=== PATIENT | male | born 1955 | race Caucasian/White ===

== ENCOUNTER 2021-08-12 23:08 | Inpatient (IN) ==
[2021-08-12] MEDS ORDERED: DIPHTHERIA/TETANUS/PERTUSSIS 0.5 ML SYR/VIAL IM ONE (23:17)
[2021-08-12] MEDS ORDERED: SODIUM CHLORIDE 0.9% 1000ML 1,000 ML IV SCH (23:30)
[2021-08-12] MEDS ORDERED: PIPERACILL/TAZOBAC CONSULT ACTIVE PRN (23:36)
[2021-08-12] MEDS ORDERED: PIPERACILLIN/TAZOBACTAM 4.5 GM/120 ML BAG IV ONE (23:36)
[2021-08-12 23:40] LABS: Basophils # (auto) 0.01 K/uL (0-0.2); Basophils % (auto) 0.1 %; Hemoglobin 8.4 g/dL (14.0-18.0); Immature Granulocytes # (auto) 0.04 K/uL (0.00-0.02); Immature Granulocytes % (auto) 0.4 %; Lymphocytes # (auto) 0.86 K/uL (1.2-3.4); Lymphocytes % (auto) 8.5 %; Mean Corpuscular Hemoglobin 30.7 pg (25-34); Mean Corpuscular Hgb Conc 31.1 g/dL (32-36); Mean Corpuscular Volume 98.5 fL (80-100); Mean Platelet Volume 8.8 fL (7.4-10.4); Monocytes # (auto) 0.85 K/uL (0.11-0.59); Monocytes % (auto) 8.4 %; Neutrophils # (auto) 8.21 K/uL (1.4-6.5); Neutrophils % (auto) 81.6 %; Platelet Count 314 K/uL (130-400); RDW Coefficient of Variation 13.9 % (11.5-14.5); RDW Standard Deviation 50.1 fL (36.4-46.3); Red Blood Count 2.74 M/uL (4.7-6.1); White Blood Count 10.07 K/uL (4.8-10.8)
--- NOTE | 2021-08-12 23:56 | Emergency Department Note ---
ED Visit Note This Patient was discussed with the physician it assistant, Aysha Henry PA-C. The pertinent historical and physical exam findings were confirmed. I agree with the studies ordered and with the interpretations of these studies. I agree with the disposition and care plan. .
[2021-08-13 00:05] LABS: Troponin I < 0.03 ng/ml (0-0.04)
[2021-08-13 00:06] LABS: Alanine Aminotransferase 21 U/L (7-52); Albumin Globulin Ratio 1.7 (0.9-2); Albumin Level 3.7 gm/dl (3.4-5.0); Alkaline Phosphatase 197 U/L (34-104); Anion Gap 4 (3-11); Aspartate Aminotransferase 27 U/L (13-39); BUN Creatinine Ratio 25.6 (10-20); Bilirubin,Total 0.3 mg/dl (0.2-1.0); Blood Urea Nitrogen 11 mg/dl (6-23); Calcium 8.6 mg/dl (8.5-10.1); Carbon Dioxide 38 mmol/L (21-32); Chloride 93 mmol/L (98-107); Creatine Kinase 183 U/L (30-223); Est GFR (African American) 139.3 ml/min; Est GFR (Non-African American) 120.2 ml/min; Globulin 2.2 gm/dl (2.5-4.0); Glucose 113 mg/dl (70-99(Fasting)); Magnesium 1.8 mg/dl (1.7-2.4); Sodium 135 mmol/L (136-145); Total Protein 5.9 gm/dl (6.0-8.3)
[2021-08-13] MEDS ORDERED: OPTIRAY 320 100ml IV ONE (00:07)
[2021-08-13] MEDS ORDERED: RAPID SEQUENCE INDUCTION BAG ONE (00:24)
[2021-08-13 00:39] LABS: HCO3 VBG 23 mmol/L; PCO2 VBG 65 mmHg (38-50); PO2 VBG 32 mmHg; pH VBG 7.17 (7.36-7.41)
[2021-08-13] MEDS ORDERED: PROPOFOL BOLUS FROM BAG IV PRN ×2 (00:46→04:02)
[2021-08-13] MEDS ORDERED: STAT IV Infusion **Titration per Protocol STA ×3 (00:46→04:02)
[2021-08-13] MEDS ORDERED: propofoL 1,000 MG/100 ML VIAL IV SCH (01:00)
--- NOTE | 2021-08-13 01:02 | Emergency Department Note ---
History of Present Illness General Chief complaint: Hand Injury/Pain Time Seen by Provider: 08/12/21 23:16 History of Present Illness This 66-year-old from the rehab facility presents to the ER complaining of alt ered mental status who fell has multiple skin lacerations Location: Generalized Quality: Altered Severity: Severe Duration: Tonight Timing: Tonight Context: Patient was found on the ground and sent in from the rehab facility Modifying factors: better with nothing; worse with nothing patient is altered and unable to obtain history. Per EMS he was found on the ground near event where he fell into. Unsure how long he was there. He has multiple skin tears and a bad laceration to his extremities. He is on Xarelto for DVT. He is at the rehab facility secondary to a fall from the [facility]. I spoke to the sister, Rose Ozuna, and states he is a full code. Home Medications Medication Instructions Recorded Confirmed Type acetaminophen 325 mg tablet 650 mg PO Q4 PRN 08/13/21 08/13/21 History (Tylenol) albuterol sulfate 90 mcg/actuation 1 inh INHALATION Q4 PRN 08/13/21 08/13/21 History aerosol inhaler atorvastatin 20 mg tablet 20 mg PO HS 08/13/21 08/13/21 History calcium carbonate 500 mg-vitamin 1 tab PO TID 08/13/21 08/13/21 History D3 5 mcg (200 unit) tablet (Calcium 500 + D) diltiazem HCl 240 mg capsule,24 240 mg PO DAILY 08/13/21 08/13/21 History hr,extended release docusate sodium 100 mg capsule 100 mg PO BID 08/13/21 08/13/21 History ergocalciferol (vitamin D2) 50,000 50,000 unit PO 2XWK 08/13/21 08/13/21 History unit tablet fluticasone fur. 100 mcg-umeclid 1 inh INHALATION DAILY 08/13/21 08/13/21 History 62.5 mcg-vilant 25 mcg inhalat.powder (Trelegy Ellipta) folic acid 1 mg tablet 1 mg PO DAILY 08/13/21 08/13/21 History gabapentin 100 mg tablet 200 mg PO Q8 08/13/21 08/13/21 History magnesium hydroxide 400 mg/5 mL 0 ml PO DAILY PRN 08/13/21 08/13/21 History oral suspension (Milk of Magnesia) metoprolol succinate 50 mg 50 mg PO DAILY 08/13/21 08/13/21 History tablet,extended release 24 hr multivitamin,la-bpgf-Hg-FA-min 1 tab PO DAILY 08/13/21 08/13/21 History ondansetron HCl 4 mg tablet 4 mg PO Q6H PRN 08/13/21 08/13/21 History oxycodone 5 mg tablet 5 mg PO Q4H PRN 08/13/21 08/13/21 History oxycodone 5 mg tablet 10 mg PO Q4H PRN 08/13/21 08/13/21 History potassium chloride 10 mEq 20 meq PO DAILY 08/13/21 08/13/21 History tablet,extended release prednisone 2.5 mg tablet 2.5 mg PO Q OTHER DAY 08/13/21 08/13/21 History rivaroxaban 20 mg tablet (Xarelto) 20 mg PO PM 08/13/21 08/13/21 History sennosides 8.6 mg-docusate sodium 1 tab-cap PO DAILY PRN 08/13/21 08/13/21 His tory 50 mg tablet (Senna-S) sodium chloride 1 gram tablet 1,000 mg PO Q8 08/13/21 08/13/21 History tamsulosin 0.4 mg capsule 0.4 mg PO DAILY 08/13/21 08/13/21 History thiamine HCl (vitamin B1) 100 mg 100 mg PO DAILY 08/13/21 08/13/21 History tablet Allergies Allergy/AdvReac Type Severity Reaction Status Date / Time sulfamethoxazole Allergy Unknown Verified 08/13/21 01:48 [From Bactrim] trimethoprim [From Bactrim] Allergy Unknown Verified 08/13/21 01:48 Past Med/Surg History Medical History Alcohol abuse COPD (chronic obstructive pulmonary disease) DVT (deep venous thrombosis) Surgical History No pertinent past surgical history Social History Smoking Status: Unknown if ever smoked Current Living Situation Comment: Patient intubated and sedated; unable to answer Assistive Devices Comment: Patient intubated and sedated; unable to answer Review of Systems Unobtainable due to cognitive status and Unobtainable due to endotracheal tube Physical Exam Vital Signs Vital Signs - 24 hr 08/12/21 23:24 08/12/21 23:44 08/13/21 00:15 Temperature 36.8 C Temperature Source Oral Pulse Rate 109 H 94 H Pulse Rate [Apical] Respiratory Rate 22 26 H 21 Respiratory Effort / Characteristics Labored Moaning Respiratory Depth Deep Blood Pressure 127/107 H 123/80 Blood Pressure [Right Arm] 140/73 Blood Pressure [Right Calf] Blood Pressure Mean 113 94 Blood Pressure Mean [Right Arm] 95 Blood Pressure Mean [Right Calf] Blood Pressure Position [Right Arm] Blood Pressure Position [Right Calf] Pulse Oximetry 98 100 100 Oxygen Delivery Method Nasal Cannula Nasal Cannula Oxymask Oxygen Flow Rate 3 3 6 Fraction of Inspired Oxygen SaO2/FiO2 Ratio Sepsis Recent Fever Within 48 Hours No Sepsis New/Unexplained Change in Mental Status Yes Sepsis Action Taken by Nursing Physician Notified End-Tidal CO2 End Tidal CO2 (18-54mmHg) Oxygen Flow Rate - Titration Pulse Oximetry Post Tiitration 08/13/21 00:16 08/13/21 00:18 08/13/21 00:31 Temperature Temperature Source Pulse Rate 89 Pulse Rate [Apical] 95 H Respiratory Rate 28 H 22 Respiratory Effort / Characteristics Respiratory Depth Deep Blood Pressure 124/64 Blood Pressure [Right Arm] 123/80 Blood Pressure [Right Calf] Blood Pressure Mean 84 Blood Pressure Mean [Right Arm] 94 Blood Pressure Mean [Right Calf] Blood Pressure Position [Right Arm] Semi-fowlers Blood Pressure Position [Right Calf] Pulse Oximetry 87 L 100 100 Oxygen Delivery Method Nasal Cannula Oxymask Oxymask Oxymask Oxygen Flow Rate 3 6 6 Fraction of Inspired Oxygen SaO2/FiO2 Ratio Sepsis Recent Fever Within 48 Hours Sepsis New/Unexplained Change in Mental Status Sepsis Action Taken by Nursing End-Tidal CO2 End Tidal CO2 (18-54mmHg) Oxygen Flow Rate - Titration 6 Pulse Oximetry Post Tiitration 99 08/13/21 00:38 08/13/21 00:40 08/13/21 00:45 Temperature Temperature Source Pulse Rate 75 84 81 Pulse Rate [Apical] Respiratory Rate 18 19 Respiratory Effort / Characteristics Respiratory Depth Blood Pressure 110/60 121/67 Blood Pressure [Right Arm] Blood Pressure [Right Calf] Blood Pressure Mean 76 85 Blood Pressure Mean [Right Arm] Blood Pressure Mean [Right Calf] Blood Pressure Position [Right Arm] Blood Pressure Position [Right Calf] Pulse Oximetry 99 100 100 Oxygen Delivery Method Mechanical Vent Mechanical Vent Oxygen Flow Rate Fraction of Inspired Oxygen 100 100 100 SaO2/FiO2 Ratio Sepsis Recent Fever Within 48 Hours Sepsis New/Unexplained Change in Mental Status Sepsis Action Taken by Nursing End-Tidal CO2 76 58 End Tidal CO2 (18-54mmHg) Oxygen Flow Rate - Titration Pulse Oximetry Post Tiitration 08/13/21 00:50 08/13/21 01:00 08/13/21 01:06 Temperature Temperature Source Pulse Rate 80 87 89 Pulse Rate [Apical] Respiratory Rate 16 17 16 Respiratory Effort / Characteristics Respiratory Depth Blood Pressure 167/89 H 166/96 H 157/88 H Blood Pressure [Right Arm] Blood Pressure [Right Calf] Blood Pressure Mean 115 119 111 Blood Pressure Mean [Right Arm] Blood Pressure Mean [Right Calf] Blood Pressure Position [Right Arm] Blood Pressure Position [Right Calf] Pulse Oximetry 100 100 100 Oxygen Delivery Method Mechanical Vent Mechanical Vent Mechanical Vent Oxygen Flow Rate Fraction of Inspired Oxygen 100 100 100 SaO2/FiO2 Ratio Sepsis Recent Fever Within 48 Hours Sepsis New/Unexplained Change in Mental Status Sepsis Action Taken by Nursing End-Tidal CO2 55 49 59 End Tidal CO2 (18-54mmHg) Oxygen Flow Rate - Titration Pulse Oximetry Post Tiitration 08/13/21 01:17 08/13/21 01:20 08/13/21 01:54 Temperature Temperature Source Pulse Rate Pulse Rate [Apical] 79 81 Respiratory Rate 26 H 26 H 26 H Respiratory Effort / Characteristics Mechanically Ventilated Mechanically Ventilated Respiratory Depth Normal Blood Pressure Blood Pressure [Right Arm] 100/60 102/63 Blood Pressure [Right Calf] 102/63 Blood Pressure Mean Blood Pressure Mean [Right Arm] 73 76 Blood Pressure Mean [Right Calf] 76 Blood Pressure Position [Right Arm] Lying Blood Pressure Position [Right Calf] Lying Pulse Oximetry 100 100 Oxygen Delivery Method Mechanical Vent Mechanical Vent Oxygen Flow Rate Fraction of Inspired Oxygen 40 100 40 SaO2/FiO2 Ratio 100 250 Sepsis Recent Fever Within 48 Hours Sepsis New/Unexplained Change in Mental Status Sepsis Action Taken by Nursing End-Tidal CO2 End Tidal CO2 (18-54mmHg) 43 35 Oxygen Flow Rate - Titration Pulse Oximetry Post Tiitration 08/13/21 02:10 08/13/21 02:15 Temperature Temperature Source Pulse Rate Pulse Rate [Apical] 82 75 Respiratory Rate 26 H 26 H Respiratory Effort / Characteristics Mechanically Ventilated Mechanically Ventilated Respiratory Depth Blood Pressure Blood Pressure [Right Arm] 120/70 Blood Pressure [Right Calf] 95/60 L Blood Pressure Mean Blood Pressure Mean [Right Arm] 86 Blood Pressure Mean [Right Calf] 71 Blood Pressure Position [Right Arm] Blood Pressure Position [Right Calf] Pulse Oximetry 100 95 Oxygen Delivery Method Mechanical Vent Mechanical Vent Oxygen Flow Rate Fraction of Inspired Oxygen 40 40 SaO2/FiO2 Ratio 250 237 Sepsis Recent Fever Within 48 Hours Sepsis New/Unexplained Change in Mental Status Sepsis Action Taken by Nursing End-Tidal CO2 End Tidal CO2 (18-54mmHg) 33 50 Oxygen Flow Rate - Titration Pulse Oximetry Post Tiitration VITALS: Vitals are noted on the nurse's note and reviewed by myself. Vital signs mildly tachycardic increased respiratory rate and patients on a facemask GENERAL: Confused appearing elderly gentleman multiple skin tears, in acute distress, SKIN: Multiple skin tears and bruising to the extremities, or laceration to the right hand, right lower leg swollen with known DVT with mild erythema, the rest of the skin was without rashes, erythema, edema, or bruising. There is no tenting of the skin. Capillary reflex less than 2 seconds. HEAD: Normocephalic atraumatic. EARS: External auditory canals clear, EYES: Pupils equal round and reactive to light and accommodation. Conjunctivae without injection, sclerae without icterus. Extraocular movements intact. NOSE: Patent, turbinates without inflammation or discharge. . MOUTH: Mucous membranes dry with dried blood in the mouth. Pharynx without erythema or exudate. Uvula midline. Airway patent. Tongue does not deviate. NECK: Supple without nuchal rigidity. No lymphadenopathy. No thyromegaly. Cervical spine is nontender. No JVD. HEART: Regular rate and rhythm LUNGS: Bibasilar rales. No retractions or accessory muscle use. ABDOMEN: Positive bowel sounds x 4. Normal tympanic percussion. Soft, nontender, without masses or organomegaly. Hansen sign negative. No guarding or rebound tenderness. No CVA tenderness MUSCULOSKELETAL: No muscle atrophy noted. NEURO: Patient was arousable to sternal rub and was able to move all extremities but does not follow commands Course Administered Medications Fentanyl Citrate (Fentanyl Bolus From Bag) 50 mcg IV Q60M PRN PRN Reason: Pain or Agitation Stop: 08/27/21 01:35 Last Admin: 08/13/21 02:34 Dose: 50 mcg Documented by: [id number] Fentanyl Citrate (Fentanyl Citrate) 2,500 mcg in 250 mls @ 7.5 mls/hr IV .[id number] [facility]; Protocol Stop: 08/27/21 01:44 Last Admin: 08/13/21 02:03 Dose: 75 mcg/hr, 7.5 mls/hr Documented by: [id number] Cosigned by: [id number] Titration: 08/13/21 02:03 Dose: 50 mcg/hr, 5 mls/hr Documented by: [id number] Cosigned by: [id number] Admin: 08/13/21 01:53 Dose: 50 mcg/hr, 5 mls/hr Documented by: [id number] Cosigned by: [id number] Sodium Chloride (Nss 1000ml) 1,000 mls @ 75 mls/hr IV .[id number] [facility] Stop: 09/12/21 03:50 Last Admin: 08/13/21 04:29 Dose: 75 mls/hr Documented by: [id number] Doxycycline Hyclate 100 mg/ (Dextrose) 110 mls @ 50 mls/hr IV BID@0400,1800 [facility] Stop: 08/20/21 03:59 Last Admin: 08/13/21 04:29 Dose: 50 mls/hr Documented by: [id number] Propofol (Diprivan) 1,000 mg in 100 mls @ 9.216 mls/hr IV .[id number] [facility]; Protocol Stop: 08/16/21 04:14 Last Admin: 08/13/21 04:30 Dose: 20 mcg/kg/min, 9.2 mls/hr Documented by: [id number] Cosigned by: [id number] Discontinued Medications Diphtheria/Pertussis/Tetanus Vacc (Diphtheria/Tetanus/Pertussis 0.5 Ml Syr/Vial) 0.5 ml IM .ONCE ONE Stop: 08/12/21 23:18 Last Admin: 08/13/21 00:22 Dose: 0.5 ml Documented by: [id number] Fentanyl Citrate (Fentanyl Citrate 100 Mcg/2 Ml Vial) 100 mcg IV NOW STA Stop: 08/13/21 01:47 Last Admin: 08/13/21 01:50 Dose: 100 mcg Documented by: [id number] Fentanyl Citrate (Fentanyl Citrate 100 Mcg/2 Ml Vial) Confirm Administered Dose 100 mcg .ROUTE .STK-MED ONE Stop: 08/13/21 01:48 Last Admin: 08/13/21 01:50 Dose: Not Given Documented by: [id number] Sodium Chloride (Nss 1000ml) 1,000 mls @ 999 mls/hr IV .[id number] [facility] Stop: 08/13/21 00:30 Last Infusion: 08/13/21 00:44 Dose: 0 mls/hr Documented by: [id number] Admin: 08/12/21 23:43 Dose: 999 mls/hr Documented by: [id number] Piperacillin Sod/Tazobactam Sod (Zosyn) 4.5 gm in 120 mls @ 240 mls/hr IV NOW ONE Stop: 08/13/21 00:05 Last Infusion: 08/13/21 00:52 Dose: 0 mls/hr Documented by: [id number] Admin: 08/13/21 00:22 Dose: 240 mls/hr Documented by: [id number] Propofol (Diprivan) 1,000 mg in 100 mls @ 9.552 mls/hr IV .[id number] [facility]; Protocol Stop: 08/16/21 00:59 Last Titration: 08/13/21 01:49 Dose: 0 mcg/kg/min, 0 mls/hr Documented by: [id number] Titration: 08/13/21 01:32 Dose: 25 mcg/kg/min, 11.9 mls/hr Documented by: [id number] Titration: 08/13/21 01:26 Dose: 20 mcg/kg/min, 9.6 mls/hr Documented by: [id number] Titration: 08/13/21 01:07 Dose: 25 mcg/kg/min, 11.9 mls/hr Documented by: [id number] Admin: 08/13/21 01:02 Dose: 20 mcg/kg/min, 9.6 mls/hr Documented by: [id number] Cosigned by: [id number] Ioversol (Optiray 320 100ml) 100 ml IV ONCE ONE Stop: 08/13/21 00:08 Last Admin: 08/13/21 00:07 Dose: 93 ml Documented by: [id number] Methylprednisolone (Methylprednisolone 40 Mg/Ml Vial) 40 mg IV TID ZAY Stop: 09/12/21 02:24 Last Admin: 08/13/21 02:30 Dose: 40 mg Documented by: [id number] Miscellaneous (Rapid Sequence Induction Bag) Confirm Administered Dose 1 ea .ROUTE .STK-MED ONE Stop: 08/13/21 00:25 Last Admin: 08/13/21 03:52 Dose: Not Given Documented by: [id number] Miscellaneous (Stat Iv Infusion Titration Per Protocol) 1 ea N/A NOW STA Stop: 08/13/21 00:47 Last Admin: 08/13/21 01:04 Dose: Not Given Documented by: [id number] Propofol (Propofol Bolus From Bag) 20 mg IV Q5M PRN PRN Reason: Sedation Stop: 08/16/21 00:45 Last Admin: 08/13/21 01:06 Dose: 20 mg Documented by: [id number] Cosigned by: [id number] Propofol (Propofol Iv Emulsion 10 Mg/Ml 100 Ml Vial) Confirm Administered Dose 1,000 mg IV .STK-MED ONE Stop: 08/13/21 03:30 Last Admin: 08/13/21 04:28 Dose: Not Given Documented by: [id number] Critical Care Time I have personally spent 60 minutes of critical care time in the direct management of this patient. This includes bedside care, interpretation of diagnostic studies, and testing, discussion with consultants, patient, and family members, and other required patient management activities. This 60 minutes is in excess of all separately billable procedures. Medical Decision Making Medical Records Attestation: I reviewed the patient's medical records. Home Medications Current Medication List: was personally reviewed by me Laboratory Data Attestation: I reviewed the patient's lab results. Result diagrams: 08/12/21 23:22 08/12/21 23:22 Lab Results 08/12/21 08/12/21 08/12/21 Range/Units 23:20 23:22 23:22 WBC 10.07 (4.8-10.8) K/uL RBC 2.74 L (4.7-6.1) M/uL Hgb 8.4 L (14.0-18.0) g/dL Hct 27.0 L (42-52) % MCV 98.5 (80-100) fL MCH 30.7 (25-34) pg MCHC 31.1 L (32-36) g/dL RDW Std Deviation 50.1 H (36.4-46.3) fL RDW Coeff of Kelvin 13.9 (11.5-14.5) % Plt Count 314 (130-400) K/uL MPV 8.8 (7.4-10.4) fL Immature Gran % (Auto) 0.4 % Neut % (Auto) 81.6 % Lymph % (Auto) 8.5 % Carver % (Auto) 8.4 % Eos % (Auto) 1.0 % Baso % (Auto) 0.1 % Neut # (Auto) 8.21 H (1.4-6.5) K/uL Lymph # (Auto) 0.86 L (1.2-3.4) K/uL Carver # (Auto) 0.85 H (0.11-0.59) K/uL Eos # (Auto) 0.10 (0-0.5) K/uL Baso # (Auto) 0.01 (0-0.2) K/uL Immature Gran # (Auto) 0.04 H (0.00-0.02) K/uL PT (9.0-12.0) Seconds INR (0.9-1.1) APTT (21.0-31.0) Seconds PTT Ratio Fibrinogen (184-400) mg/dl POC pH (7.35-7.45) POC pCO2 (35-46) mmHg POC pO2 (80-95) mmHg POC HCO3 (19-24) antonino/L POC Total CO2 (24-31) mmol/L POC Base Excess (-9-1.8) antonino/L POC ABG O2 Sat (90-95) % VBG pH (7.36-7.41) VBG pCO2 (38-50) mmHg VBG pO2 mmHg VBG HCO3 mmol/L VBG O2 Saturation VBG Base Excess Barometric Pressure mm/Hg Sodium 135 L (136-145) mmol/L Potassium 5.0 (3.5-5.1) mmol/L Chloride 93 L (98-107) mmol/L Carbon Dioxide 38 H (21-32) mmol/L Anion Gap 4 (3-11) BUN 11 (6-23) mg/dl Creatinine 0.43 L (0.6-1.4) mg/dl Est Cr Clr Drug Dosing Not Reportable Est GFR ( Amer) 139.3 ml/min Est GFR (Non-Af Amer) 120.2 ml/min BUN/Creatinine Ratio 25.6 H (10-20) Glucose 113 H (70-99(Fasting)) mg/dl POC Glucose 138 H (70-99) mg/dl Calcium 8.6 (8.5-10.1) mg/dl Magnesium 1.8 (1.7-2.4) mg/dl Total Bilirubin 0.3 (0.2-1.0) mg/dl AST 27 (13-39) U/L ALT 21 (7-52) U/L Alkaline Phosphatase 197 H (34-104) U/L Ammonia (18-72) umol/L Total Creatine Kinase 183 (30-223) U/L Troponin I < 0.03 (0-0.04) ng/ml Total Protein 5.9 L (6.0-8.3) gm/dl Albumin 3.7 (3.4-5.0) gm/dl Globulin 2.2 L (2.5-4.0) gm/dl Albumin/Globulin Ratio 1.7 (0.9-2) TSH (0.300-4.500) uIu/ml Urine Color Urine Appearance (Clear) Urine pH (4.5-7.5) Ur Specific Mcclave (1.000-1.030) Urine Protein (Negative) Urine Glucose (UA) (Negative) Urine Ketones (Negative) Urine Blood (Negative) Urine Nitrite (Negative) Urine Bilirubin (Negative) Urine Urobilinogen (Negative) Ur Leukocyte Esterase (Negative) Urine Opiates Screen (Neg) Ur Methadone, Qual (Neg) Urine Barbiturates (Neg) Ur Phencyclidine (PCP) (Neg) U Amphetamin/Meth Scrn (Neg) MDMA (Ecstasy) Screen (Neg) U Benzodiazepines Scrn (Neg) Ur Cocaine Metabolite (Neg) U Marijuana (THC) Screen (Neg) Ethyl Alcohol mg/dL (<10.0) mg/dl SARS-CoV-2, RNA, NAAT (NEGATIVE) Blood Type Antibody Screen 08/12/21 08/13/21 08/13/21 Range/Units 23:22 00:10 00:10 WBC (4.8-10.8) K/uL RBC (4.7-6.1) M/uL Hgb (14.0-18.0) g/dL Hct (42-52) % MCV (80-100) fL MCH (25-34) pg MCHC (32-36) g/dL RDW Std Deviation (36.4-46.3) fL RDW Coeff of Kelvin (11.5-14.5) % Plt Count (130-400) K/uL MPV (7.4-10.4) fL Immature Gran % (Auto) % Neut % (Auto) % Lymph % (Auto) % Carver % (Auto) % Eos % (Auto) % Baso % (Auto) % Neut # (Auto) (1.4-6.5) K/uL Lymph # (Auto) (1.2-3.4) K/uL Carver # (Auto) (0.11-0.59) K/uL Eos # (Auto) (0-0.5) K/uL Baso # (Auto) (0-0.2) K/uL Immature Gran # (Auto) (0.00-0.02) K/uL PT (9.0-12.0) Seconds INR (0.9-1.1) APTT (21.0-31.0) Seconds PTT Ratio Fibrinogen (184-400) mg/dl POC pH (7.35-7.45) POC pCO2 (35-46) mmHg POC pO2 (80-95) mmHg POC HCO3 (19-24) antonino/L POC Total CO2 (24-31) mmol/L POC Base Excess (-9-1.8) antonino/L POC ABG O2 Sat (90-95) % VBG pH (7.36-7.41) VBG pCO2 (38-50) mmHg VBG pO2 mmHg VBG HCO3 mmol/L VBG O2 Saturation VBG Base Excess Barometric Pressure mm/Hg Sodium (136-145) mmol/L Potassium (3.5-5.1) mmol/L Chloride (98-107) mmol/L Carbon Dioxide (21-32) mmol/L Anion Gap (3-11) BUN (6-23) mg/dl Creatinine (0.6-1.4) mg/dl Est Cr Clr Drug Dosing Est GFR ( Amer) ml/min Est GFR (Non-Af Amer) ml/min BUN/Creatinine Ratio (10-20) Glucose (70-99(Fasting)) mg/dl POC Glucose (70-99) mg/dl Calcium (8.5-10.1) mg/dl Magnesium (1.7-2.4) mg/dl Total Bilirubin (0.2-1.0) mg/dl AST (13-39) U/L ALT (7-52) U/L Alkaline Phosphatase (34-104) U/L Ammonia 14.0 L (18-72) umol/L Total Creatine Kinase (30-223) U/L Troponin I (0-0.04) ng/ml Total Protein (6.0-8.3) gm/dl Albumin (3.4-5.0) gm/dl Globulin (2.5-4.0) gm/dl Albumin/Globulin Ratio (0.9-2) TSH 1.583 (0.300-4.500) uIu/ml Urine Color Urine Appearance (Clear) Urine pH (4.5-7.5) Ur Specific Mcclave (1.000-1.030) Urine Protein (Negative) Urine Glucose (UA) (Negative) Urine Ketones (Negative) Urine Blood (Negative) Urine Nitrite (Negative) Urine Bilirubin (Negative) Urine Urobilinogen (Negative) Ur Leukocyte Esterase (Negative) Urine Opiates Screen (Neg) Ur Methadone, Qual (Neg) Urine Barbiturates (Neg) Ur Phencyclidine (PCP) (Neg) U Amphetamin/Meth Scrn (Neg) MDMA (Ecstasy) Screen (Neg) U Benzodiazepines Scrn (Neg) Ur Cocaine Metabolite (Neg) U Marijuana (THC) Screen (Neg) Ethyl Alcohol mg/dL (<10.0) mg/dl SARS-CoV-2, RNA, NAAT (NEGATIVE) Blood Type O Positive Antibody Screen NEGATIVE 08/13/21 08/13/21 08/13/21 Range/Units 00:10 00:10 00:10 WBC (4.8-10.8) K/uL RBC (4.7-6.1) M/uL Hgb (14.0-18.0) g/dL Hct (42-52) % MCV (80-100) fL MCH (25-34) pg MCHC (32-36) g/dL RDW Std Deviation (36.4-46.3) fL RDW Coeff of Kelvin (11.5-14.5) % Plt Count (130-400) K/uL MPV (7.4-10.4) fL Immature Gran % (Auto) % Neut % (Auto) % Lymph % (Auto) % Carver % (Auto) % Eos % (Auto) % Baso % (Auto) % Neut # (Auto) (1.4-6.5) K/uL Lymph # (Auto) (1.2-3.4) K/uL Carver # (Auto) (0.11-0.59) K/uL Eos # (Auto) (0-0.5) K/uL Baso # (Auto) (0-0.2) K/uL Immature Gran # (Auto) (0.00-0.02) K/uL PT 15.1 H (9.0-12.0) Seconds INR 1.4 H (0.9-1.1) APTT 49.5 H* (21.0-31.0) Seconds PTT Ratio 1.8 Fibrinogen 326 (184-400) mg/dl POC pH (7.35-7.45) POC pCO2 (35-46) mmHg POC pO2 (80-95) mmHg POC HCO3 (19-24) antonino/L POC Total CO2 (24-31) mmol/L POC Base Excess (-9-1.8) antonino/L POC ABG O2 Sat (90-95) % VBG pH 7.17 L (7.36-7.41) VBG pCO2 65 H (38-50) mmHg VBG pO2 32 mmHg VBG HCO3 23 mmol/L VBG O2 Saturation TNP VBG Base Excess TNP Barometric Pressure 730.6 mm/Hg Sodium (136-145) mmol/L Potassium (3.5-5.1) mmol/L Chloride (98-107) mmol/L Carbon Dioxide (21-32) mmol/L Anion Gap (3-11) BUN (6-23) mg/dl Creatinine (0.6-1.4) mg/dl Est Cr Clr Drug Dosing Est GFR ( Amer) ml/min Est GFR (Non-Af Amer) ml/min BUN/Creatinine Ratio (10-20) Glucose (70-99(Fasting)) mg/dl POC Glucose (70-99) mg/dl Calcium (8.5-10.1) mg/dl Magnesium (1.7-2.4) mg/dl Total Bilirubin (0.2-1.0) mg/dl AST (13-39) U/L ALT (7-52) U/L Alkaline Phosphatase (34-104) U/L Ammonia (18-72) umol/L Total Creatine Kinase (30-223) U/L Troponin I (0-0.04) ng/ml Total Protein (6.0-8.3) gm/dl Albumin (3.4-5.0) gm/dl Globulin (2.5-4.0) gm/dl Albumin/Globulin Ratio (0.9-2) TSH (0.300-4.500) uIu/ml Urine Color Urine Appearance (Clear) Urine pH (4.5-7.5) Ur Specific Mcclave (1.000-1.030) Urine Protein (Negative) Urine Glucose (UA) (Negative) Urine Ketones (Negative) Urine Blood (Negative) Urine Nitrite (Negative) Urine Bilirubin (Negative) Urine Urobilinogen (Negative) Ur Leukocyte Esterase (Negative) Urine Opiates Screen (Neg) Ur Methadone, Qual (Neg) Urine Barbiturates (Neg) Ur Phencyclidine (PCP) (Neg) U Amphetamin/Meth Scrn (Neg) MDMA (Ecstasy) Screen (Neg) U Benzodiazepines Scrn (Neg) Ur Cocaine Metabolite (Neg) U Marijuana (THC) Screen (Neg) Ethyl Alcohol mg/dL < 10.0 (<10.0) mg/dl SARS-CoV-2, RNA, NAAT (NEGATIVE) Blood Type Antibody Screen 08/13/21 08/13/21 08/13/21 Range/Units 00:15 01:10 01:10 WBC (4.8-10.8) K/uL RBC (4.7-6.1) M/uL Hgb (14.0-18.0) g/dL Hct (42-52) % MCV (80-100) fL MCH (25-34) pg MCHC (32-36) g/dL RDW Std Deviation (36.4-46.3) fL RDW Coeff of Kelvin (11.5-14.5) % Plt Count (130-400) K/uL MPV (7.4-10.4) fL Immature Gran % (Auto) % Neut % (Auto) % Lymph % (Auto) % Carver % (Auto) % Eos % (Auto) % Baso % (Auto) % Neut # (Auto) (1.4-6.5) K/uL Lymph # (Auto) (1.2-3.4) K/uL Carver # (Auto) (0.11-0.59) K/uL Eos # (Auto) (0-0.5) K/uL Baso # (Auto) (0-0.2) K/uL Immature Gran # (Auto) (0.00-0.02) K/uL PT (9.0-12.0) Seconds INR (0.9-1.1) APTT (21.0-31.0) Seconds PTT Ratio Fibrinogen (184-400) mg/dl POC pH (7.35-7.45) POC pCO2 (35-46) mmHg POC pO2 (80-95) mmHg POC HCO3 (19-24) antonino/L POC Total CO2 (24-31) mmol/L POC Base Excess (-9-1.8) antonino/L POC ABG O2 Sat (90-95) % VBG pH (7.36-7.41) VBG pCO2 (38-50) mmHg VBG pO2 mmHg VBG HCO3 mmol/L VBG O2 Saturation VBG Base Excess Barometric Pressure mm/Hg Sodium (136-145) mmol/L Potassium (3.5-5.1) mmol/L Chloride (98-107) mmol/L Carbon Dioxide (21-32) mmol/L Anion Gap (3-11) BUN (6-23) mg/dl Creatinine (0.6-1.4) mg/dl Est Cr Clr Drug Dosing Est GFR ( Amer) ml/min Est GFR (Non-Af Amer) ml/min BUN/Creatinine Ratio (10-20) Glucose (70-99(Fasting)) mg/dl POC Glucose (70-99) mg/dl Calcium (8.5-10.1) mg/dl Magnesium (1.7-2.4) mg/dl Total Bilirubin (0.2-1.0) mg/dl AST (13-39) U/L ALT (7-52) U/L Alkaline Phosphatase (34-104) U/L Ammonia (18-72) umol/L Total Creatine Kinase (30-223) U/L Troponin I (0-0.04) ng/ml Total Protein (6.0-8.3) gm/dl Albumin (3.4-5.0) gm/dl Globulin (2.5-4.0) gm/dl Albumin/Globulin Ratio (0.9-2) TSH (0.300-4.500) uIu/ml Urine Color Yellow Urine Appearance Clear (Clear) Urine pH 5.0 (4.5-7.5) Ur Specific Mcclave 1.044 H (1.000-1.030) Urine Protein Negative (Negative) Urine Glucose (UA) Negative (Negative) Urine Ketones Trace H (Negative) Urine Blood Negative (Negative) Urine Nitrite Negative (Negative) Urine Bilirubin Negative (Negative) Urine Urobilinogen Negative (Negative) Ur Leukocyte Esterase Negative (Negative) Urine Opiates Screen Pos H (Neg) Ur Methadone, Qual Neg (Neg) Urine Barbiturates Neg (Neg) Ur Phencyclidine (PCP) Neg (Neg) U Amphetamin/Meth Scrn Neg (Neg) MDMA (Ecstasy) Screen Neg (Neg) U Benzodiazepines Scrn Neg (Neg) Ur Cocaine Metabolite Neg (Neg) U Marijuana (THC) Screen Neg (Neg) Ethyl Alcohol mg/dL (<10.0) mg/dl SARS-CoV-2, RNA, NAAT NEGATIVE (NEGATIVE) Blood Type Antibody Screen 08/13/21 Range/Units 01:14 WBC (4.8-10.8) K/uL RBC (4.7-6.1) M/uL Hgb (14.0-18.0) g/dL Hct (42-52) % MCV (80-100) fL MCH (25-34) pg MCHC (32-36) g/dL RDW Std Deviation (36.4-46.3) fL RDW Coeff of Kelvin (11.5-14.5) % Plt Count (130-400) K/uL MPV (7.4-10.4) fL Immature Gran % (Auto) % Neut % (Auto) % Lymph % (Auto) % Carver % (Auto) % Eos % (Auto) % Baso % (Auto) % Neut # (Auto) (1.4-6.5) K/uL Lymph # (Auto) (1.2-3.4) K/uL Carver # (Auto) (0.11-0.59) K/uL Eos # (Auto) (0-0.5) K/uL Baso # (Auto) (0-0.2) K/uL Immature Gran # (Auto) (0.00-0.02) K/uL PT (9.0-12.0) Seconds INR (0.9-1.1) APTT (21.0-31.0) Seconds PTT Ratio Fibrinogen (184-400) mg/dl POC pH 7.27 L (7.35-7.45) POC pCO2 85 H (35-46) mmHg POC pO2 > 420 H (80-95) mmHg POC HCO3 39 H (19-24) antonino/L POC Total CO2 > 40 H* (24-31) mmol/L POC Base Excess 13.0 H (-9-1.8) antonino/L POC ABG O2 Sat 100.0 H (90-95) % VBG pH (7.36-7.41) VBG pCO2 (38-50) mmHg VBG pO2 mmHg VBG HCO3 mmol/L VBG O2 Saturation VBG Base Excess Barometric Pressure mm/Hg Sodium (136-145) mmol/L Potassium (3.5-5.1) mmol/L Chloride (98-107) mmol/L Carbon Dioxide (21-32) mmol/L Anion Gap (3-11) BUN (6-23) mg/dl Creatinine (0.6-1.4) mg/dl Est Cr Clr Drug Dosing Est GFR ( Amer) ml/min Est GFR (Non-Af Amer) ml/min BUN/Creatinine Ratio (10-20) Glucose (70-99(Fasting)) mg/dl POC Glucose (70-99) mg/dl Calcium (8.5-10.1) mg/dl Magnesium (1.7-2.4) mg/dl Total Bilirubin (0.2-1.0) mg/dl AST (13-39) U/L ALT (7-52) U/L Alkaline Phosphatase (34-104) U/L Ammonia (18-72) umol/L Total Creatine Kinase (30-223) U/L Troponin I (0-0.04) ng/ml Total Protein (6.0-8.3) gm/dl Albumin (3.4-5.0) gm/dl Globulin (2.5-4.0) gm/dl Albumin/Globulin Ratio (0.9-2) TSH (0.300-4.500) uIu/ml Urine Color Urine Appearance (Clear) Urine pH (4.5-7.5) Ur Specific Mcclave (1.000-1.030) Urine Protein (Negative) Urine Glucose (UA) (Negative) Urine Ketones (Negative) Urine Blood (Negative) Urine Nitrite (Negative) Urine Bilirubin (Negative) Urine Urobilinogen (Negative) Ur Leukocyte Esterase (Negative) Urine Opiates Screen (Neg) Ur Methadone, Qual (Neg) Urine Barbiturates (Neg) Ur Phencyclidine (PCP) (Neg) U Amphetamin/Meth Scrn (Neg) MDMA (Ecstasy) Screen (Neg) U Benzodiazepines Scrn (Neg) Ur Cocaine Metabolite (Neg) U Marijuana (THC) Screen (Neg) Ethyl Alcohol mg/dL (<10.0) mg/dl SARS-CoV-2, RNA, NAAT (NEGATIVE) Blood Type Antibody Screen Imaging Data Attestation: I personally reviewed and interpreted this imaging study as follows: MDM Narrative Prior records/ancillary studies reviewed and summarized above. Nursing notes reviewed. Additional history obtained from EMS and long term. The patient's history was concerning for altered mental status. Differential diagnosis: Etiologies such as metabolic, infection, hypoglycemia, electrolyte abnormalities, cardiac sources, intracerebral event, toxicologic, neurologic, as well as others were entertained. Physical examination: As above. ER treatment provided: IV Lock Normal saline hydration Zosyn, tetanus. Propofol drip was initiated for sedation but then patient became hypotensive and this is switched to fentanyl. max An order was placed for continuous cardiac monitoring. The monitor shows a rate of 60-1 50 with a sinus rhythm. Endotracheal Intubation Indication respiratory failure and altered mental status. The patient was on 100% oxygen via NRB prior to the procedure. Suction, airway equipment, RSI drugs, respiratory equipment, and appropriate personnel were prepared prior to the initiation of the procedure. A time out was taken. Induction was performed with etomidate and succ. After observing the clinical benefit of the medications, the airway was easily visualized utilizing a glide scope. A 7.5 size ETT tube was placed atraumatically to 24 cm using standard technique. The cuff inflated without signs of malfunction. There were bilateral breath sounds, positive colormetric change, no gastric sounds, a good capnography waveform, and post procedure pulse oximetry was 100%. Post intubation sedation and paralysis was administered using propofol. There were no complications. I did the procedure. Laceration Repair Location: Right hand Total length: 5 cm with skin tears Complexity: Simple Implied consent was utilized as patient was altered and intubated. At this time, the risks of the procedure are less than the risks of NOT performing the procedure. A time out was taken and the correct patient and site identified. The skin was prepped with betadine. Copious irrigation was performed using nss. The skin was re-prepped with betadine and a sterile field set. The wound was explored for foreign bodies and none found. Examination revealed no injury to deep structures such as tendons, bone, or significant blood vessels. Debridement was not performed. The wound edges were approximated using 4, 4-0 simple interrupted nylon sutures. Hemostasis and excellent approximation was achieved. Steri-Strips and antibacterial ointment and a sterile dressing applied. No complications and the patient tolerated the procedure well. Patient also had multiple skin tears and these are cleansed and dressed by nursing. On reassessment the patients mental status was unchanged Diagnostics interpretation by me: ECG: Ordered for altered mental status EKG: Poor baseline, normal sinus, normal intervals, no acute ST-T changes. Impression normal sinus rhythm interpreted by myself I think arrhythmia is unlikely. EKG shows normal sinus rhythm with no interval abnormalities such as QT prolongation or WPW. There are no findings to suggest Brugada syndrome. Cardiac monitoring in the emergency department reveals no tachycardic or bradycardic dysrhythmia. Hypertrophic cardiomyopathy was con sidered but there are no clear historical elements pointing toward this. EKG is not suggestive. The QRS voltage is not extremely large and there are no suggestive Q waves. The labs revealed stable anemia per chart review in the [facility] system VBG and ABG reviewed and vent settings were adjusted Imaging studies: Chest x-ray showed the ET tube was high lying and was advanced two more centimet ers. No pneumothorax. Hand x-ray with no acute consolidation, pneumothorax or free air per my inter pretation Preliminary Findings Only See Final Report For Complete Findings CT HEAD: No evidence of intracranial hemorrhage. No mass-effect or midline shift. No skull fracture. Visualized paranasal sinuses and mastoid air cells are clear. Motion degradation and streak artifact somewhat limits intracranial evaluation. Partially visualized lucent region of the alveolar portion of the central anterior maxilla, possibly dental related. Consider dental evaluation. Radiologist: Humphrey Noyola MD Preliminary Findings Only See Final Report For Complete Findings CT C SPINE: No acute cervical spine fracture. 3 mm retrolisthesis of C3 on C4 and 5 mm anterolisthesis of C4 and C5, favored to be secondary to facet arthrosis and cervical spondylosis. Multilevel cervical spondylosis most apparent at C3-4. Radiologist: Humphrey Noyola MD CT CHEST With Contrast: Moderate bilateral pleural effusions. Moderate to severe centrilobular emphysema. Multivessel coronary artery calcifications. No pneumothorax. Normal heart size. Multiple compression deformities of the thoracolumbar spine, likely remote. Radiologist: Humphrey Noyola MD Preliminary Findings Only See Final Report For Complete Findings CT ABDOMEN & PELVIS With Contrast: Right superior and inferior pubic rami fractures. Bilateral sacral insufficiency fractures with mild presacral edema. Moderate colonic stool burden. Bilateral adrenal nodules, most likely adenomas. Degenerative changes of the hips. Remote appearing thoracolumbar compression fractures. L5 spondylolysis with grade 1 anterolisthesis. Respiratory motion degrades imaging quality. Radiologist: Humphrey Noyola MD Given the above diagnostic work-up and treatment, this episode appears to be consistent with altered mental status and acute respiratory failure. Further treatment will be required. Medicine and ICU were consulted. Patient was admitted to their service. Patient was reassessed multiple times. 2 lines were placed. Patient was medicated as above. Wounds were repaired as above. My attending was present for the intubation. I did contact the sister who states he is a full code and will come to the hospital. Consultation: A consultation was placed with the ICU and hospitalist. The case was discussed and diagnostics were reviewed. The patient was evaluated in the ER for further treatment. Impression & Plan Altered mental status, Acute respiratory failure, Hand laceration, Multiple skin tears, Fall Discharge Plan Visit Data Chief Complaint: Hand Injury/Pain ED Provider: Nasir Milligan ED Midlevel Provider: Aysha Henry Discharge Problem: Altered mental status, Acute respiratory failure, Hand laceration, Multiple skin tears, Fall Patient Disposition: Admitted As Inpatient Condition: Critical Discharge Instructions Interventions: ED Discharge Assessment Last Done: 08/13/21 02:53 Discharge Problem: Altered mental status Qualifiers: Altered mental status type: unspecified Qualified Code(s): R41.82 - Altered mental status, unspecified
[2021-08-13 01:07] LABS: Fibrinogen 326 mg/dl (184-400); INR 1.4 (0.9-1.1); Partial Thromboplastin Ratio 1.8; Prothrombin Time 15.1 Seconds (9.0-12.0)
[2021-08-13 01:10] LABS: Partial Thromboplastin Time 49.5 Seconds (21.0-31.0)
[2021-08-13 01:21] LABS: Appearance Urine Clear (Clear); Bilirubin Urine Negative (Negative); Blood Urine Negative (Negative); Color Urine Yellow; Glucose Urine UA Negative (Negative); Ketones Urine Trace (Negative); Leukocyte Esterase Urine Negative (Negative); Nitrite Urine Negative (Negative); Protein Urine Negative (Negative); Specific Gravity Urine 1.044 (1.000-1.030); Urobilinogen Urine Negative (Negative)
[2021-08-13 01:40] LABS: iSTAT Arterial Blood Gas HCO3 39 meg/L (19-24); iSTAT Arterial Blood Gas pCO2 85 mmHg (35-46); iSTAT Arterial Blood Gas pH 7.27 (7.35-7.45); iSTAT Arterial Blood Gas pO2 > 420 mmHg (80-95); iSTAT Carbon Dioxide > 40 mmol/L (24-31)
[2021-08-13] MEDS ORDERED: fentaNYL citrate 100 MCG/2 ML VIAL IV STA (01:46)
[2021-08-13] MEDS ORDERED: fentaNYL citrate 100 MCG/2 ML VIAL ONE (01:47)
[2021-08-13] MEDS: fentaNYL citrate 2,500 MCG/250 ML BAG IV SCH ×2 (01:53→02:03)
[2021-08-13 02:03] LABS: Amphetamines+Metham, Urine Neg (Neg); Barbiturates, Urine Neg (Neg); Benzodiazepine, Urine Neg (Neg); Cocaine, Urine Neg (Neg); MDMA (Ecstacy), Urine Neg (Neg); Methadone, Urine Neg (Neg); Opiate, Urine Pos (Neg); Phencyclidine, Urine Neg (Neg)
[2021-08-13] MEDS ORDERED: PROPOFOL IV EMULSION 10 MG/ML 100 ML VIAL IV ONE (03:29)
[2021-08-13] MEDS ORDERED: METOPROLOL TARTRATE 1 MG/ML VIAL IV PRN (03:51)
[2021-08-13] MEDS ORDERED: ICU PROTOCOL FOR HYPERGLYCEMIA PRN (03:51)
[2021-08-13 04:24] LABS: iSTAT Allen Test Fail; iSTAT Art Bld Gas pCO2 Correct 45 mmHg (35-46); iSTAT Art Bld Gas pH Corrected 7.492 (7.35-7.45); iSTAT Arterial Blood Gas HCO3 35 meg/L (19-24); iSTAT Arterial Blood Gas pCO2 44 mmHg (35-46); iSTAT Arterial Blood Gas pO2 157 mmHg (80-95); iSTAT Arterial Blood Gas pO2 C 160; iSTAT Carbon Dioxide 36 mmol/L (24-31); iSTAT FiO2 40 %; iSTAT Hematocrit 29 % (42-52); iSTAT Hemoglobin 9.9 g/dl (14.0-18.0); iSTAT Potassium 4.4 mmol/L (3.3-5.0); iSTAT Site L Radial; iSTAT Sodium 132 mmol/L (135-144)
[2021-08-13] MEDS: SODIUM CHLORIDE 0.9% 1000ML 1,000 ML IV SCH ×2 (04:29→18:41)
[2021-08-13] MEDS: DOXYCYCLINE HYCLATE 100 MG in DEXTROSE 5% 100 ML IV SCH ×2 (04:29→18:43)
[2021-08-13] MEDS: propofoL 1,000 MG/100 ML VIAL IV SCH ×2 (04:30→11:56)
--- NOTE | 2021-08-13 05:09 | History and Physical Report ---
DATE OF ADMISSION: 08/13/2021. CHIEF COMPLAINT: Status post fall, altered mental status, respiratory failure. HISTORY OF PRESENT ILLNESS: A 66-year-old male with past medical history significant for COPD, on home oxygen, seems to be on 3 liters, history of lung cancer diagnosed in 2008, presumed to be non-small cell lung carcinoma of the posterior right upper lung, felt to be not a candidate for any lung surgery or lung biopsy. He received radiation treatment from 03/26/2009 to 04/02/2009, seems to be at [place]. The patient since then he stopped smoking, but he vapes once in a while. History of alcohol abuse, seems to be drinking 4-6 beers every day. The patient has history of hypertension, hyperlipidemia, recent diagnosis of BPH and recent diagnosis of right leg DVT. He was brought in from [facility] because of fall and altered mental status and he was intubated because venous blood gas is showing pH of 7.17 and pCO2 of 65. As per the H and P done by [facility] on 08/08/2021, the patient was admitted to [facility] from 07/19/2021 to 07/22/2021. At that time, he was admitted for fall leading to superior and inferior pubic rami fractures and a complex right upper extremity laceration. He also was found to have a right femoral DVT on that visit and was started on Xarelto. Inpatient rehabilitation was recommended, but the patient refused and went home. After going home, seems he did poorly and was declining functionally and he was found confused, lethargic by a neighbor, and was taken to the [place] ER on 07/29/2021, where his sodium level was quite low at 112, potassium was 5.1, creatinine was 0.5. WBC was 15, hemoglobin was 10.9. CT of the head was no acute findings. Multiple compression fractures at L2 level and was transferred back to [place] due to severe hyponatremia. At that time, he initially required BiPAP due to dyspnea and somnolence, but he was titrated back on nasal cannula. Seemed to be stable on 3 liters nasal cannula. 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 He was treated with intravenous sodium and placed on sodium tablets and fluid restriction of 1200 mL per day. Serum sodium level gradually came up to 129 on discharge and also patient had several episodes of urinary retention that was attributed to BPH, seems he is on Flomax. Pulmonary has seen him and he was chronically on prednisone, they tapered him off prednisone .He also had one shot of COVID, Pfizer shot on 08/03/2021.He was discharged to [facility] and as per the sister, he was getting confused and today told he was found on the floor. Seemed to be without oxygen and was brought in here. In the ER, he was confused and as his ABG was showing low pH, he was intubated. Currently sedated with propofol. As blood pressure was dropping, changing to fentanyl drip. He has open wound on the right wrist, which was sutured by the ER and also laceration seen in the right upper extremity. All the history was got from the H and P from the [facility] and from the ER and from the sister. The patient is a full code. Could not get any history from the patient. ALLERGIES: BACTRIM. PAST MEDICAL HISTORY: As mentioned above. PAST SURGICAL HISTORY: Unknown at this time. MEDICATIONS: At [facility], he was on Tylenol 650 mg p.o. q. 4 hours p.r.n., albuterol 1 inhalation q. 4 hours p.r.n., atorvastatin 20 mg p.o. at bedtime, calcium carbonate 500 plus D one tablet p.o. t.i.d., diltiazem 240 mg p.o. daily, Colace 100 mg p.o. b.i.d., vitamin D 50,000 units p.o. 2 times a week, Trelegy Ellipta 1 inhalation daily, folic acid 1 mg p.o. daily, gabapentin 200 mg p.o. q. 8 hours, metoprolol succinate 50 mg p.o. daily, multivitamins 1 tablet p.o. daily, Zofran 4 mg p.o. q. 6 hours p.r.n., oxycodone 10 mg p.o. q. 4 hours p.r.n., oxycodone 4-5 mg p.o. q. 4 hours p.r.n., potassium chloride 20 mEq p.o. daily, prednisone 2.5 mg p.o. every other day, Xarelto 20 mg p.o. daily, Senokot S 1 tablet p.o. daily p.r.n., sodium chloride 1 g p.o. t.i.d., Flomax 0.4 mg p.o. daily, thiamine 100 mg p.o. daily. FAMILY HISTORY: Mother from congestive heart failure and father from COPD. SOCIAL HISTORY: Smoked cigarettes 1 pack a day until 2008, for approximately 30 years. Currently he vapes once sometimes. Alcohol, he drinks five to six beers a day. 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 REVIEW OF SYSTEMS: Unobtainable at this time. PHYSICAL EXAMINATION: GENERAL: The patient is status post intubation and sedation. HEENT: Atraumatic. Pupils are sluggish to react. No facial droop seen. NECK: No neck masses seen. CARDIOVASCULAR: S1 and S2 heard. Regular rate and rhythm. No murmur, no gallop. RESPIRATORY SYSTEM: Normal AP diameter. No accessory muscle use. No wheezing, no crackles. ABDOMEN: Slight distention. Soft, bowel sounds sluggish. CENTRAL NERVOUS SYSTEM: Status post intubated, sedation. EXTREMITIES: Bilateral lower extremity edema present, more on the right lower extremity. A small superficial wound seen on the right johns with erythematous changes around. Some mottling seen in the lower extremities. LABORATORY DATA: WBC 10, hemoglobin 8.4, hematocrit 27, platelets 314. PT 15.1, INR 1.1, APTT 49.5. Fibrinogen 326. Venous blood gas, pH of 7.12, pCO2 of 65, pO2 of 32, bicarbonate 23. Sodium 135, potassium 5, chloride 93, CO2 of 38, BUN 11, creatinine 0.4, serum glucose 113, calcium 8.6, magnesium 1.8, total bilirubin 0.3, AST 27, ALT 21, alkaline phosphatase 197, ammonia 14. Total creatine kinase 183. Troponin I less than 0.03. TSH 1.5. Urinalysis negative. Urine drug screen positive for opiates. Ethyl alcohol less than 10. SARS-CoV-2 RNA rapid test negative. IMAGING DATA: Chest CT, preliminary report, moderate bilateral pleural effusions, moderate to severe centrilobular emphysema, multivessel coronary artery calcification. No pneumothorax. Normal heart size. Multiple compression deformities of the thoracolumbar spine, likely remote. Cervical spine CT, no acute cervical spine fracture, multilevel cervical spondylosis, most apparent at C3-C4 level. CT abdomen and pelvis, right superior and inferior pubic ramus fracture, bilateral sacral insufficiency fractures with mild presacral edema, moderate colonic stool burden. Bilateral adrenal nodules, likely adenomas. Degenerative changes of the hip. Remote-appearing thoracolumbar compression fractures. Chest x-ray, some mild congestion. CT of the head, preliminary report, no acute findings. EKG: Poor quality data, interpretation, ventricular rate of 119, undetermined rhythm. ASSESSMENT AND PLAN: This is a 66-year-old male with history of alcohol abuse, history of chronic obstructive pulmonary disease, chronic respiratory failure mostly on 3 L oxygen, history of recent diagnosis of deep venous thrombosis, history of lung cancer diagnosed in 2008, status post radiation treatment, history of hypertension, benign prostatic hypertrophy, hyperlipidemia, who was recently admitted to [facility] initially for the fall and pelvic fractures and right lower extremity deep venous thrombosis. Recommended rehab but went home and was found to be confused, lethargic by a neighbor and brought into the [facility], where he was found to have a sodium of 112 and transferred back to [facility], treated initially with IV saline and then salt tablets and fluid restriction. Seen by pulmonary. His prednisone is being tapered and also he has urinary retention from benign prostatic hypertrophy. Transferred to [facility], was found on the floor confused and brought him here and he seemed to be having CO2 retention, low pH, and got intubated. 1. Altered mental status, vent-dependent respiratory failure: Etiology unclear, could be from the infection, possible cellulitis of lower extremity, possible any underlying pneumonia, also could be from the pain medications. The patient is almost in the hospital for the last about 2 weeks and alcohol withdrawal unlikely. He is on Xarelto, so PE unlikely. ER started empirically on Zosyn, we will continue Zosyn. We will start on IV doxycycline. Continue the vent management as per critical care. Monitor closely in the ICU. Will follow the repeat ABGs. 2. For chronic obstructive pulmonary disease, was getting inhalers and also prednisone 2.5 mg every other day. Will place him on IV Solu-Medrol 40 t.i.d. for now and taper as soon as possible and nebs around the clock for now. 3. History of recent diagnosis of deep venous thrombosis of the right lower extremity, continue Xarelto with NG tube. 4. History of anemia: His hemoglobin was 10.9 in labs in [facility], today his hemoglobin is 8.4. We will check stool for Hemoccult. Follow the iron studies and vitamin B12 and folate levels. Will transfuse as needed if necessary.Blood consent obtained. 5. Hyponatremia: He had a sodium of 112 on 07/29/2021. At the [facility] ER, sodium was 112. Was seen by nephrology at [facility] and currently he is on fluid restriction 1200 mL per day and salt tablets. Sodium is 135 today here, will continue with salt tablets with NG tube. Currently placed on iv ns@75ml/hr as patinet is npo. 6. Hypertension: At home, he is on metoprolol succinate and diltiazem. We will place him on IV Lopressor p.r.n. for systolic blood pressures of 170. 7. Benign prostatic hypertrophy: Continue Flomax. 8. Frequent falls and pelvic fractures and compression fractures, rib fractures: PT, OT when stable and transfer back to rehab when stable. 9. Bilateral pleural effusion and lower extremity edema. Will follow echo.On fluids Monitor for volume overload. 10. Deep venous thrombosis prophylaxis: On Xarelto. DISPOSITION: Closely monitor in the ICU. Level 1 full code as per my discussion with the sister. Follow the final report of the imaging studies. Job ID: [id number]
[2021-08-13] MEDS: SODIUM CHLORIDE 1 GM TABLET PO SCH ×3 (05:43→21:38)
[2021-08-13] MEDS: GABAPENTIN 100 MG CAP PO SCH ×3 (05:43→21:37)
[2021-08-13] MEDS ORDERED: PIPERACILLIN/TAZOBACTAM 3.375 GM in DEXTROSE 5% 100 ML IV SCH (06:00)
[2021-08-13 06:05] LABS: Basophils # (auto) 0.01 K/uL (0-0.2); Basophils % (auto) 0.1 %; Eosinophils # (auto) 0.04 K/uL (0-0.5); Eosinophils % (auto) 0.4 %; Hematocrit (blood only) 27.1 % (42-52); Hemoglobin 8.3 g/dL (14.0-18.0); Immature Granulocytes # (auto) 0.02 K/uL (0.00-0.02); Immature Granulocytes % (auto) 0.2 %; Lymphocytes % (auto) 2.7 %; Mean Corpuscular Hemoglobin 30.2 pg (25-34); Mean Corpuscular Hgb Conc 30.6 g/dL (32-36); Mean Corpuscular Volume 98.5 fL (80-100); Mean Platelet Volume 8.9 fL (7.4-10.4); Monocytes # (auto) 0.71 K/uL (0.11-0.59); Monocytes % (auto) 6.5 %; Neutrophils # (auto) 9.83 K/uL (1.4-6.5); Neutrophils % (auto) 90.1 %; Platelet Count 282 K/uL (130-400); RDW Coefficient of Variation 13.9 % (11.5-14.5); RDW Standard Deviation 49.6 fL (36.4-46.3); Red Blood Count 2.75 M/uL (4.7-6.1); White Blood Count 10.91 K/uL (4.8-10.8)
--- NOTE | 2021-08-13 06:28 | Critical Care Consultation ---
Date of Consultation August 13, 2021 Assessment & Plan (1) Admitted to intensive care unit: Reason Critically Ill: 66-year-old male presenting with altered mental status after sustaining multiple falls with associated lacerations requiring endotracheal intubation with ongoing management in a patient with likely degree of CO2 narcosis. NEURO - * CAM ICU: Unable to assess secondary to level sedation. * Sedation: Propofol * Pain: Fentanyl * Altered mental status: * Question patient's baseline. He does have a history of alcohol abuse. He is recently been without alcohol for the last 14 days which makes withdrawal much less likely. CT head and neck are unremarkable. AMS in the setting of hypercapnia most likely. We will see if patient improves with clearing of CO2. CARDIAC/VASCULAR - * DVT of the RIGHT lower extremity: * Patient on Xarelto. Concerning in patient with frequency of falls. * Unknown history of coronary artery disease. * No overt problems at this time. * Monitor on telemetry. RESPIRATORY - * Acute on chronic hypoxic respiratory failure with hypercapnia: * Requiring emergent endotracheal intubation. * Titrate ventilator settings as tolerated. * Agree with steroids, nebs, antibiotic coverage in the significant COPD patient. GI/NUTRITION - * Famotidine RENAL/LYTES - * No significant electrolyte derangements despite recent history of hyponatremia. * IVF: NS at 75 an hour - * Goodson in place - Strict I&Os. ENDO - * No history of diabetes or thyroid disease * BSGs per unit protocol. ISS --> gtt per unit policy. HEME - * Anemia * Of uncertain etiology. Patient hemodynamically stable otherwise. Question if related to his alcoholism. ID - * Concerns for cellulitis of the RIGHT lower extremity LINES/IV ACCESS - * PIVs x2 * ET tube * Goodson DVT PROPHYLAXIS - * Xarelto * SCDs I have personally spent 35 minutes of critical care time in the direct management of this patient. This is a life/limb threatening event. This includes time spent evaluating patient, direct bedside care, chart review, placing orders, interpretation of diagnostic studies, discussion with consultants, patient, and family members, as well as other required patient management activities. This time is exclusive of all separately billable procedures, and teaching time and separate from and in addition to any other critical care service time. Thank you for allowing us to participate in the care of this patient. Please refer to my attending physician's documentation for any further recommendations. (2) Altered mental status: (3) Acute respiratory failure: (4) Hand laceration: (5) Multiple skin tears: (6) Fall: History of Present Illness Attending Physician: Ector Almanzar MD History of Present Illness Patient is a 66-year-old male with a significant past medical history of COPD requiring home oxygen, prior history of lung CA, alcohol abuse hypertension, hyperlipidemia, and DVT. Patient had recently been admitted to [facility] after sustaining multiple falls. He had been in inpatient rehabilitation facility, and went home. Patient had increasing decline and eventually ended back up at located emergency department. Patient was noted to have fractures of his pelvis as well as compression fractures of his spine. He was sent to [facility] rehab for ongoing management. Patient was found down in his room at [facility]. He was felt to be next to the heater in the room. Patient was noted to be altered. Blood gas concerning for respiratory acidosis. Patient eventually required endotracheal intubation. Patient is also with multiple skin lacerations and laceration to the RIGHT hand that was felt to have arterial component. Upon evaluation in the ICU, the patient is intubated and sedated. Allergies Allergy/AdvReac Type Severity Reaction Status Date / Time sulfamethoxazole Allergy Unknown Verified 08/13/21 01:48 [From Bactrim] trimethoprim [From Bactrim] Allergy Unknown Verified 08/13/21 01:48 Home Medications Medication Instructions Recorded Confirmed Type acetaminophen 325 mg tablet 650 mg PO Q4 PRN 08/13/21 08/13/21 History (Tylenol) albuterol sulfate 90 mcg/actuation 1 inh INHALATION Q4 PRN 08/13/21 08/13/21 History aerosol inhaler atorvastatin 20 mg tablet 20 mg PO HS 08/13/21 08/13/21 History calcium carbonate 500 mg-vitamin 1 tab PO TID 08/13/21 08/13/21 History D3 5 mcg (200 unit) tablet (Calcium 500 + D) diltiazem HCl 240 mg capsule,24 240 mg PO DAILY 08/13/21 08/13/21 History hr,extended release docusate sodium 100 mg capsule 100 mg PO BID 08/13/21 08/13/21 History ergocalciferol (vitamin D2) 50,000 50,000 unit PO 2XWK 08/13/21 08/13/21 History unit tablet fluticasone fur. 100 mcg-umeclid 1 inh INHALATION DAILY 08/13/21 08/13/21 History 62.5 mcg-vilant 25 mcg inhalat.powder (Trelegy Ellipta) folic acid 1 mg tablet 1 mg PO DAILY 08/13/21 08/13/21 History gabapentin 100 mg tablet 200 mg PO Q8 08/13/21 08/13/21 History magnesium hydroxide 400 mg/5 mL 0 ml PO DAILY PRN 08/13/21 08/13/21 History oral suspension (Milk of Magnesia) metoprolol succinate 50 mg 50 mg PO DAILY 08/13/21 08/13/21 History tablet,extended release 24 hr multivitamin,ae-udmo-Ms-FA-min 1 tab PO DAILY 08/13/21 08/13/21 History ondansetron HCl 4 mg tablet 4 mg PO Q6H PRN 08/13/21 08/13/21 History oxycodone 5 mg tablet 5 mg PO Q4H PRN 08/13/21 08/13/21 History oxycodone 5 mg tablet 10 mg PO Q4H PRN 08/13/21 08/13/21 History potassium chloride 10 mEq 20 meq PO DAILY 08/13/21 08/13/21 History tablet,extended release prednisone 2.5 mg tablet 2.5 mg PO Q OTHER DAY 08/13/21 08/13/21 History rivaroxaban 20 mg tablet (Xarelto) 20 mg PO PM 08/13/21 08/13/21 History sennosides 8.6 mg-docusate sodium 1 tab-cap PO DAILY PRN 08/13/21 08/13/21 History 50 mg tablet (Senna-S) sodium chloride 1 gram tablet 1,000 mg PO Q8 08/13/21 08/13/21 History tamsulosin 0.4 mg capsule 0.4 mg PO DAILY 08/13/21 08/13/21 History thiamine HCl (vitamin B1) 100 mg 100 mg PO DAILY 08/13/21 08/13/21 History tablet Patient History Medical History Alcohol abuse COPD (chronic obstructive pulmonary disease) DVT (deep venous thrombosis) Surgical History No pertinent past surgical history Social History Smoking Status: Unknown if ever smoked Current Living Situation Comment: Patient intubated and sedated; unable to answer Assistive Devices Comment: Patient intubated and sedated; unable to answer Review of Systems Review of Systems: Unobtainable due to cognitive status and Unobtainable due to endotracheal tube Physical Exam Physical Exam: VITAL SIGNS - Vital signs and nursing notes were reviewed. GENERAL - 66-year-old male appearing older than his stated age who is in no acute distress. Intubated and sedated. SKIN - Multiple lacerations, abrasions, and ecchymosis noted throughout. HEAD - NC/AT. EYES - PERRL with EOMI bilaterally. Sclera anicteric. EARS - No deformities of external structures noted on gross examination bilaterally. NOSE - Midline and without cyanosis. No epistaxis or purulent drainage noted. MOUTH/OROPHARYNX - ETT in place. Without perioral cyanosis. NECK - Supple to palpation. No nuchal rigidity. LUNGS - Coarse breath sounds noted. CARDIAC - RRR with S1/S2. No murmur, rubs, or gallops appreciated. ABDOMEN - Abdominal contour obese without pulsations or visible masses. BS normoactive all four quadrants. No tenderness, palpable masses, hepatosplenomegaly, or ascites noted. EXTREMITIES - RLE edema. Abrasion with surrounding erythema noted to the RLE. NEUROLOGIC - No focal neurological deficits noted. Unable to fully assess secondary to sedation. Results & Data Results & Data ([facility]) Vital Signs (Past 12 Hours) Vital Signs Temp Pulse Pulse Resp BP BP BP 08/13/21 05:15 85 22 99/66 L 08/13/21 05:00 86 22 108/69 08/13/21 04:45 88 22 95/62 L 08/13/21 04:30 87 22 101/65 08/13/21 04:19 22 08/13/21 04:15 87 22 101/72 08/13/21 04:00 90 26 H 85/59 L 08/13/21 03:47 37.6 C H 83 33 H 107/92 08/13/21 03:45 119 H 26 H 95/54 L 08/13/21 03:25 96 H 27 H 08/13/21 02:53 82 26 H 95/58 L 08/13/21 02:15 75 26 H 120/70 08/13/21 02:10 82 26 H 95/60 L 08/13/21 01:54 81 26 H 102/63 102/63 08/13/21 01:20 79 26 H 100/60 08/13/21 01:17 26 H 08/13/21 01:06 89 16 157/88 H 08/13/21 01:00 87 17 166/96 H 08/13/21 00:50 80 16 167/89 H 08/13/21 00:45 81 19 121/67 08/13/21 00:40 84 110/60 08/13/21 00:38 75 18 08/13/21 00:31 89 22 124/64 08/13/21 00:18 95 H 28 H 123/80 08/13/21 00:16 08/13/21 00:15 94 H 21 123/80 08/12/21 23:44 26 H 140/73 08/12/21 23:24 36.8 C 109 H 22 127/107 H Pulse Ox 08/13/21 05:15 100 08/13/21 05:00 100 08/13/21 04:45 100 08/13/21 04:30 100 08/13/21 04:19 08/13/21 04:15 97 08/13/21 04:00 100 08/13/21 03:47 88 L 08/13/21 03:45 100 08/13/21 03:25 99 08/13/21 02:53 100 08/13/21 02:15 95 08/13/21 02:10 100 08/13/21 01:54 100 08/13/21 01:20 100 08/13/21 01:17 08/13/21 01:06 100 08/13/21 01:00 100 08/13/21 00:50 100 08/13/21 00:45 100 08/13/21 00:40 100 08/13/21 00:38 99 08/13/21 00:31 100 08/13/21 00:18 100 08/13/21 00:16 87 L 08/13/21 00:15 100 08/12/21 23:44 100 08/12/21 23:24 98 Coding Level of Care Code Critical Care 1st 30-74 mins Diagnoses Admitted to intensive care unit Z78.9 Altered mental status R41.82 Altered mental status type: unspecified Acute respiratory failure J96.00 Hand laceration S61.419A Multiple skin tears T14.8XXA Fall W19.XXXA Time Spent (min) 35 (1) Altered mental status Altered mental status type: unspecified Qualified Code(s): R41.82 - Altered mental status, unspecified
[2021-08-13 06:30] LABS: Troponin I < 0.03 ng/ml (0-0.04)
[2021-08-13 06:32] LABS: Alanine Aminotransferase 20 U/L (7-52); Albumin Level 3.3 gm/dl (3.4-5.0); Alkaline Phosphatase 175 U/L (34-104); Anion Gap 7 (3-11); Aspartate Aminotransferase 24 U/L (13-39); Bilirubin Direct 0.1 mg/dl (0-0.2); Bilirubin,Total 0.5 mg/dl (0.2-1.0); Blood Urea Nitrogen 13 mg/dl (6-23); Calcium 8.4 mg/dl (8.5-10.1); Carbon Dioxide 32 mmol/L (21-32); Chloride 95 mmol/L (98-107); Creatinine Clr Calc Pharmacy 178.6 ml/min; Est GFR (African American) 140.6 ml/min; Est GFR (Non-African American) 121.3 ml/min; Glucose 90 mg/dl (70-99(Fasting)); Iron 24 mcg/dl (35-175); Magnesium 1.7 mg/dl (1.7-2.4); Phosphorus 1.8 mg/dl (2.5-4.9); Potassium 4.8 mmol/L (3.5-5.1); Sodium 134 mmol/L (136-145); Total Protein 5.3 gm/dl (6.0-8.3); Unsaturated Iron Binding Cap 166 mcg/dl (155-355)
[2021-08-13 06:52] LABS: Folate (Folic Acid) 16.83 ng/ml (>5.38)
[2021-08-13] MEDS ORDERED: XOPENEX/ATROVENT 1.25mg/0.5MG NEB COMBO NEB SCH (07:00)
--- NOTE | 2021-08-13 07:12 | CT Scan Report ---
CERVICAL SPINE CT CT DOSE: HISTORY: Altered mental status. Fall. TECHNIQUE: Multiaxial CT images of the cervical spine were performed and reformatted in the sagittal and coronal plane without the use of contrast. A dose lowering technique was utilized adhering to e principles of ALARA. COMPARISON: None. FINDINGS: Mild to moderate anterior wedging at the C7 vertebral body with mild sclerosis along the machado perior endplate. This may represent a subacute compression fracture. This demonstrate up to 30% loss of height anteriorly. No associated retropulsion. No additional fractures identified within the cervi marlys spine. There are severe disc space narrowing at C3-C4 and moderate disc space narrowing at C5-C6. There is 3 mm of anterolisthesis of C4 on C5. There are severe facet degenerative changes at C4-C5. Prevertebral soft tissues are unremarkable. Prevertebral soft tissues and the C1-C2 interval are inta ct. No pneumothorax. Emphysema noted at the lung apices. IMPRESSION: 1. Mild to moderate anterior wedging at the C7 vertebral body which is age indeterminate but may repr esent a subacute compression fracture. No associated retropulsion. 2. There is 3 mm of anterolisthesis of C4 on C5 which favors long-standing degenerative change. ACT 112: Negative or not required by law. Electronically signed by: Ramon Song M.D. 08/13/2021 7:09 AM
[2021-08-13 07:15] LABS: Ferritin 369.5 ng/ml (8-388)
--- NOTE | 2021-08-13 07:20 | CT Scan Report ---
CT OF THE HEAD WITHOUT CONTRAST CLINICAL HISTORY: Altered mental status. Fall. COMPARISON STUDY: No previous studies for comparison. TECHNIQUE: Helical axial images of the head were obtained without IV contrast. Automated exposure con trol was utilized for the study. A dose lowering technique was utilized adhering to the principles o f ALARA. FINDINGS: This exam is mildly compromised by motion artifact. No acute intracranial hemorrhage, midli ne shift or mass effect is present. Ventricular system is unremarkable. Basal cisterns are patent. Th ere are no extra-axial collections. White matter hypodensity suggests small vessel disease. No depres sed calvarial fracture is present. Nasal bone deformities are age-indeterminate. IMPRESSION: 1. No acute intracranial findings. Exam moderately compromised by motion artifact. 2. No depressed calvarial fracture. ACT 112: Negative or not required by law. Electronically signed by: Candelario Blair M.D. 08/13/2021 7:19 AM
--- NOTE | 2021-08-13 07:28 | CT Scan Report ---
CT OF THE CHEST WITH IV CONTRAST CLINICAL HISTORY: Altered mental status, fall COMPARISON STUDY: Chest radiograph August 12, 2021. TECHNIQUE: Following IV administration of 93 mL of Optiray, helical axial images of the chest were o btained. Sagittal and coronal reconstructions were viewed as well as maximal intensity projections o n an independent 3-D workstation. Automated exposure control was utilized for the study. A dose low ering technique was utilized adhering to the principles of ALARA. FINDINGS: This exam is mildly compromised by motion artifact. There is no evidence for traumatic inj ury to the thoracic aorta. Mild cardiomegaly is noted. There is extensive coronary artery calcificati on dilatation. No thoracic lymphadenopathy is present. Moderate right and small left pleural effusion s are present. There is no pneumothorax. Severe emphysema is noted. Subpleural lower lobe opacities f avor atelectasis. Linear right apical opacity favors scarring. No acute rib fractures are identified although sensitivity is diminished given motion artifact. There are old bilateral rib fractures. Age indeterminate compression fracture of the superior endplate of C7 is noted. There are mild to moderat e compression fractures of T9-L2. These are age-indeterminate but probably old. Abdomen and pelvis wi ll be reported separately. IMPRESSION: 1. Exam moderately compromised by motion artifact. No evidence for traumatic injury to the thoracic a zulay. 2. No pneumothorax. Moderate right and small left pleural effusions. 3. No definite acute rib fractures although sensitivity diminished on this exam. 4. Severe emphysema. 5. Multiple thoracolumbar spine compression fractures which are age-indeterminate but probably old. ACT 112: Negative or not required by law. Electronically signed by: Candelario Blair M.D. 08/13/2021 7:27 AM
[2021-08-13 07:35] LABS: Total Iron Binding Cap Calc 190 mcg/dl (250-450); Transferrin 132 mg/dl (200-360); Transferrin (FE) Percent Satur 13 % (20-50)
--- NOTE | 2021-08-13 07:42 | CT Scan Report ---
CT OF THE ABDOMEN AND PELVIS WITH CONTRAST CLINICAL HISTORY: Altered mental status. Fall. COMPARISON STUDY: None. TECHNIQUE: Following IV administration of 93 mL of Optiray, axial images of the abdomen and pelvis we re obtained from the lung bases to the proximal femurs. Images were reviewed in the axial, sagittal, and coronal planes. IV contrast was administered without complication. Automated exposure control wa s utilized for the study. A dose lowering technique was utilized adhering to the principles of ALARA . CT DOSE: 2728.54 mGy.cm FINDINGS: The chest CT will be reported separately. Moderate right and small left pleural effusions a re present. No hemoperitoneum or pneumoperitoneum is present. Exam is mildly compromised by motion ar tifact. There is no evidence for traumatic injury to the liver, spleen, adrenal glands, kidneys or pa ncreas. There is a 2.3 cm left adrenal nodule and a 2.2 cm right adrenal nodule. No biliary or pancre atic ductal dilatation is present. Moderate amount stool is present. There is no hydronephrosis. Note is made of displaced comminuted fractures of the right inferior and superior pubic rami. There is ca llus formation. These fractures are likely subacute. Compression fractures of T9-L2 are age-indetermi lyn but probably old. Acute to subacute bilateral sacral ala fractures are present. Acute to subacu te fractures of the bilateral transverse processes of L5 are present. Central canal and neural forame n are suboptimally assessed by CT. There are old bilateral L5 pars defects with grade one anterolisth esis of L5 on S1. Anasarca is noted. No proximal femoral fracture is present. 3.1 cm hypodense fluid collection of the lateral right thigh. IMPRESSION: 1. No evidence for traumatic injury to the solid abdominal viscera. Exam mildly compromised by motion artifact. 2. Multiple sacral fractures, including fractures of the bilateral sacral ala and S2 vertebral body. In addition, fractures of the bilateral transverse processes of L5. These fractures appear acute to s ubacute. 3. Comminuted, displaced fractures of the right inferior and superior pubic rami which are likely sub acute. 4. Body wall edema with anasarca. 5. 3.1 cm subcutaneous fluid collection of the lateral right thigh. This could reflect a resolving he matoma or edema. ACT 112: Negative or not required by law. Electronically signed by: Candelario Blair M.D. 08/13/2021 7:41 AM
[2021-08-13] MEDS: IPRATROPIUM BROMIDE NEB SOLN 0.02% 2.5 ML VIAL INH SCH ×4 (07:59→23:33)
[2021-08-13] MEDS: LEVALBUTEROL 1.25MG/0.5ML NEB INH SCH ×4 (08:00→23:32)
[2021-08-13] MEDS ORDERED: PNEUMOCOCCAL POLYSACCHARIDES 25 MCG/0.5 ML VIAL/SYR IM ONE (09:00)
--- NOTE | 2021-08-13 09:01 | XRay Report ---
XR chest 1V portable CLINICAL HISTORY: weakness COMPARISON STUDY: No previous studies for comparison. FINDINGS: Tip of endotracheal tube is 7.5 cm above the barbi. Size of the heart is normal. Small mod erate right and small left pleural effusions are present. There is no pneumothorax. Hazy bilateral mi d and lower lung opacities are greater on the right. There is underlying emphysema. IMPRESSION: 1. Tip of endotracheal tube 7.5 cm above the barbi. 2. Small to moderate right and small left pleural effusions which likely account for hazy bilateral o pacities. 3. Emphysema. Possible mild pulmonary edema. ACT 112: Negative or not required by law. Electronically signed by: Candelario Blair M.D. 08/13/2021 8:59 AM
--- NOTE | 2021-08-13 09:07 | XRay Report ---
XR hand RT min 3V routine CLINICAL HISTORY: fall. Right hand pain. COMPARISON STUDY: None. FINDINGS: Possible linear lucency within the mid shaft of the first metacarpal. This is only seen on image 1 and not confirmed on additional views. There is soft tissue swelling within the hand. Subopti mal evaluation of the fingers due to patient positioning. Superficial linear radiopaque foreign body adjacent to the first metacarpal which could represent overlying bandage material. IMPRESSION: 1. A linear lucency within the mid shaft of the first metacarpal only seen on one view. This could be due to overlying artifact or a nondisplaced fracture. Clinical correlation recommended to assess for pain at this location. 2. A superficial linear radiopaque foreign body adjacent to the first metacarpal which could represen t overlying bandage. 3. Suboptimal evaluation of the fingers due to patient positioning. 4. Diffuse soft tissue swelling within the hand. ACT 112: Negative or not required by law. Electronically signed by: Ramon Song M.D. 08/13/2021 9:05 AM
[2021-08-13] MEDS: TAMSULOSIN HCL 0.4 MG CAP PO SCH (10:14)
--- NOTE | 2021-08-13 11:06 | XRay Report ---
KUB CLINICAL HISTORY: OGT placement COMPARISON STUDY: CT of the chest, abdomen pelvis August 12, 2021. FINDINGS: Tip of endotracheal tube is 5.1 cm above the barbi. Tip of nasogastric tube projects over the proximal stomach. The tube could be advanced an additional 4 cm. Sidehole projects over the gastr oesophageal junction. Bilateral pleural effusions, right larger than left, are again noted. There are associated bibasilar opacities. Emphysema with possible mild pulmonary edema is present. No pneumoth orax. IMPRESSION: Tip of nasogastric tube projects over the proximal stomach. The tube could be advanced 4 cm. ACT 112: Negative or not required by law. Electronically signed by: Candelario Blair M.D. 08/13/2021 11:04 AM
[2021-08-13] MEDS: FAMOTIDINE 20 MG in SYRINGE 3 ML IV SCH (11:48)
[2021-08-13] MEDS: THIAMINE HCL 100 MG TAB PO SCH (11:49)
[2021-08-13] MEDS: methylPREDNISolone 40 MG in SYRINGE 0 ML IV SCH ×2 (11:49→18:42)
[2021-08-13 11:52] LABS: iSTAT Creatinine 0.6 mg/dl (0.6-1.3)
[2021-08-13 11:53] LABS: iSTAT Hemoglobin 9.2 g/dl (14.0-18.0); iSTAT Ionized Calcium 1.27 mmol/l (1.12-1.32)
[2021-08-13] MEDS: MAGNESIUM SULFATE / D5W 1 GM/100 ML BAG IV SCH ×2 (11:56→13:50)
[2021-08-13] MEDS ORDERED: POTASSIUM PHOSPHATE 21 MMOL in SODIUM CHLORIDE 0.9% 500 ML IV ONE (12:00)
--- NOTE | 2021-08-13 13:59 | Electrocardiogram Report ---
Test Reason : Blood Pressure : / mmHG Vent. Rate : 119 BPM Atrial Rate : 258 BPM P-R Int : 000 ms QRS Dur : 076 ms QT Int : 324 ms P-R-T Axes : 000 064 081 degrees QTc Int : 455 ms Poor data quality, interpretation may be adversely affected Sinus rhythm Low voltage QRS Abnormal ECG No previous ECGs available Confirmed by Bry Garcia ([id number]) on 08/13/2021 1:59:47 PM Referred By: REFERRED SELF Confirmed By:Bry Garcia
[2021-08-13] MEDS: PIPERACILLIN/TAZOBACTAM 4.5 GM in DEXTROSE 5% 100 ML IV SCH ×2 (15:19→21:46)
[2021-08-13 15:46] LABS: iSTAT Allen Test Pass; iSTAT Arterial Blood Gas HCO3 31 meg/L (19-24); iSTAT Arterial Blood Gas pCO2 43 mmHg (35-46); iSTAT Arterial Blood Gas pH 7.47 (7.35-7.45); iSTAT Arterial Blood Gas pO2 63 mmHg (80-95); iSTAT Carbon Dioxide 33 mmol/L (24-31); iSTAT FiO2 30 %; iSTAT Site L Radial
[2021-08-13] MEDS ORDERED: HALOPERIDOL LACTATE 5 MG/ML 1 ML VIAL IV STA (18:28)
--- NOTE | 2021-08-13 18:52 | Communication Note ---
Date of Service: August 13, 2021 Patient was seen and examined at bedside. Chart reviewed. H&P reviewed (refer to H&P and grain commodity manager note for details). Patient admitted earlier today for a ltered mental status and intubated. Currently during my encounter, he has been extubated and is on oxymask, comfortably breathing. He is awake alert oriented and answering questions appropriately. Oriented to self. Knows he is in hospital but did not know it was [facility]. States it is August 2021, 3rd or 4th. States he is here to get better but could not specify any further. States he does not smoke or drink alcohol anymore. Denies any issues currently other than that he wants to get well and wants to go back to sleep. States ate food but he could not remember. Might have some cognitive issues. His bilateral upper extremities have echymoses with erythema and some skin break, states he easily bruises being on a blood thinner and that he falls but has not had a fall in about a year; also in RLE. Currently on empiric zosyn/doxy pending culture results. On xarelto for anticoagulation. On solumedrol and nebs for COPD but does not seem to be in acute exacerbation and steroids can be tapered. Management per grain commodity manager.
--- NOTE | 2021-08-13 21:06 | Communication Note ---
Date of Service: August 13, [id number]: Was reported by nursing staff the patient was agitated and refused to wear his [place] collar. I did evaluate the patient at bedside. I woke him from sleep at that time. After waking, the patient is awake, alert, and oriented. He provides location, appropriate year, appropriate month, appropriate birthdate, etc. He is aware that he was previously in [facility] secondary to falls and pelvic fracture. I did explain to him in great length that there is suspicion of a wedge fracture of the cervical spine and by not wearing his [place] J collar, he risks worsening of fracture up to and including paralysis and . He is agreeable to attempt to wear the collar overnight. Additionally, during our conversation, the patient reports that "everybody dies sometime" and states that he is fine if it is it is time to pass away. At that point, I did address CODE STATUS. Previously, per previous documentation, the patient was a DNR/DNI. His CODE STATUS was changed upon arrival in the emergency department last night. After discussion, the patient is adamant that he would not wish to undergo chest compressions, cardioversion, or aggressive ACLS techniques. He is comfortable with intubation as performed last night if necessary. Patient is appropriate and able to make his own decisions. CODE STATUS updated in chart. Nursing staff updated as well. I have personally spent 20 minutes of critical care time in the direct management of this patient. This is a life/limb threatening event. This includes time spent evaluating patient, direct bedside care, chart review, placing orders, interpretation of diagnostic studies, discussion with consultants, patient, and family members, as well as other required patient management acti vities. This time is exclusive of all separately billable procedures, and teaching time and separate from and in addition to any other critical care service time. Coding Level of Care Code Critical Care senthil addt'l 30 min Time Spent (min) 20
[2021-08-13] MEDS: RIVAROXABAN 20 MG TAB PO SCH (21:37)
[2021-08-14] MEDS: FAMOTIDINE 20 MG in SYRINGE 3 ML IV SCH ×2 (00:34→10:04)
[2021-08-14] MEDS: methylPREDNISolone 40 MG in SYRINGE 0 ML IV SCH ×3 (02:31→18:30)
[2021-08-14] MEDS: DOXYCYCLINE HYCLATE 100 MG in DEXTROSE 5% 100 ML IV SCH (04:13)
[2021-08-14 05:09] LABS: Hematocrit (blood only) 25.8 % (42-52); Immature Granulocytes # (auto) 0.02 K/uL (0.00-0.02); Immature Granulocytes % (auto) 0.3 %; Lymphocytes # (auto) 0.27 K/uL (1.2-3.4); Lymphocytes % (auto) 4.2 %; Mean Corpuscular Volume 96.6 fL (80-100); Mean Platelet Volume 8.7 fL (7.4-10.4); Monocytes # (auto) 0.07 K/uL (0.11-0.59); Monocytes % (auto) 1.1 %; Neutrophils # (auto) 6.04 K/uL (1.4-6.5); Neutrophils % (auto) 94.4 %; Platelet Count 311 K/uL (130-400); RDW Standard Deviation 49.8 fL (36.4-46.3); Red Blood Count 2.67 M/uL (4.7-6.1)
[2021-08-14] MEDS: GABAPENTIN 100 MG CAP PO SCH ×3 (05:09→20:38)
[2021-08-14] MEDS: SODIUM CHLORIDE 1 GM TABLET PO SCH ×3 (05:10→20:38)
[2021-08-14] MEDS: PIPERACILLIN/TAZOBACTAM 4.5 GM in DEXTROSE 5% 100 ML IV SCH (05:11)
[2021-08-14 05:47] LABS: Albumin Level 3.4 gm/dl (3.4-5.0); BUN Creatinine Ratio 29.6 (10-20); Bilirubin Direct 0.1 mg/dl (0-0.2); Bilirubin,Total 0.3 mg/dl (0.2-1.0); Calcium 7.7 mg/dl (8.5-10.1); Creatinine Clr Calc Pharmacy 138.9 ml/min; Est GFR (African American) 126.8 ml/min; Est GFR (Non-African American) 109.4 ml/min; Magnesium 2.2 mg/dl (1.7-2.4); Phosphorus 4.3 mg/dl (2.5-4.9); Potassium 4.5 mmol/L (3.5-5.1); Total Protein 5.7 gm/dl (6.0-8.3)
[2021-08-14] MEDS: IPRATROPIUM BROMIDE NEB SOLN 0.02% 2.5 ML VIAL INH SCH ×3 (07:14→18:00)
[2021-08-14] MEDS: LEVALBUTEROL 1.25MG/0.5ML NEB INH SCH ×3 (07:14→18:00)
[2021-08-14] MEDS: NOREPINEPHRINE/D5W 8 MG/508 ML BAG IV SCH ×2 (07:16→07:17)
[2021-08-14] MEDS ORDERED: DexMEDEtomidine BOLUS FROM BAG IV ONE ×2 (08:05→08:30)
[2021-08-14] MEDS ORDERED: STAT IV Infusion **Titration per Protocol STA (08:05)
[2021-08-14 08:12] LABS: iSTAT Allen Test Pass; iSTAT Arterial Blood Gas HCO3 33 meg/L (19-24); iSTAT Arterial Blood Gas pCO2 105 mmHg (35-46); iSTAT Arterial Blood Gas pH 7.11 (7.35-7.45); iSTAT Arterial Blood Gas pO2 65 mmHg (80-95); iSTAT Carbon Dioxide 36 mmol/L (24-31); iSTAT FiO2 40 %; iSTAT Site L Radial
[2021-08-14] MEDS: dexMEDEtomidine 200 MCG/50 ML BAG IV SCH ×4 (08:25→17:30)
[2021-08-14] MEDS: SODIUM CHLORIDE 0.9% 1000ML 1,000 ML IV SCH ×2 (08:38→20:55)
--- NOTE | 2021-08-14 09:41 | Critical Care Progress Note ---
Date of Service August 14, 2021 Assessment & Plan (1) Admitted to intensive care unit: Plan: Reason Critically Ill: 66-year-old male presenting with altered mental status after sustaining multiple falls with associated lacerations requiring endotracheal intubation with ongoing management in a patient with likely degree of CO2 narcosis. NEURO - * Sedation: Precedex to facilitate noninvasive mechanical ventilation * Discontinue Fentanyl * Acute agitation: likely secondary to hypercarbia * He does have a history of alcohol abuse. He is recently been without alcohol for the last 14 days which makes withdrawal much less likely. * Continue home gabapentin C7 wedge compression - Continue cervical collar - Orthopedics consult CARDIAC/VASCULAR - * DVT of the RIGHT lower extremity: * Patient on Xarelto. Concerning in patient with frequency of falls. * Restart metoprolol XL 50mg daily RESPIRATORY - * Acute on chronic hypoxic respiratory failure with hypercapnia: * Requiring emergent endotracheal intubation. * Agree with steroids, nebs, antibiotic coverage in the significant COPD patient. GI/NUTRITION - * discontinue Famotidine RENAL/LYTES - * No significant electrolyte derangements despite recent history of hyponatremia. * IVF: NS at 75 an hour - * Goodson in place - Strict I&Os. ENDO - * No history of diabetes or thyroid disease * BSGs per unit protocol. ISS --> gtt per unit policy. HEME - * Anemia * Of uncertain etiology ID - * De-escalate antibiotics to community-acquired pathogens: Rocephin and Zithromax LINES/IV ACCESS - * PIVs x2 * Goodson DVT PROPHYLAXIS - * Xarelto * SCDs Patient was discussed multidisciplinary rounds I have personally spent 35 minutes of critical care time in the direct management of this patient. This is a life/limb threatening event. This includes time spent evaluating patient, direct bedside care, chart review, placing orders, interpretation of diagnostic studies, discussion with consultants, patient, and family members, as well as other required patient management activities. This time is exclusive of all separately billable procedures, and teaching time and separate from and in addition to any other critical care service time. Thank you for allowing us to participate in the care of this patient. Please refer to my attending physician's documentation for any further recommendations. (2) Altered mental status: (3) Acute respiratory failure: (4) Hand laceration: (5) Multiple skin tears: (6) Fall: Admission and Anticipated Discharge Date Admission Date: August 13, 2021 Subjective self-discontinuing Cervical collar. Was instructed about risks of spinal injury. Could not tolerate Bipap, however, having exertional dyspnea Review of Systems Review of Systems: as per subjective Physical Exam Physical Exam: General: Alert. nontoxic. Skin: Warm, dry, Head: Atraumatic Ears, nose, mouth and throat: airway patent Cardiovascular: Normal peripheral perfusion Respiratory: Increased I to E ratio, no accessory muscle use, mild tachypnea Gastrointestinal: Non distended Musculoskeletal: No deformity Results & Data Results & Data ([facility]) Vital Signs (Past 12 Hours) Vital Signs Temp Pulse Pulse Resp BP Pulse Ox 08/14/21 09:02 36.8 C 08/14/21 08:53 107 H 27 H 95 08/14/21 08:00 129 H 23 95 08/14/21 07:38 127 H 24 93 08/14/21 07:17 132 H 24 95 08/14/21 07:00 133 H 32 H 163/82 H 93 08/14/21 06:52 122 H 25 H 146/83 H 91 08/14/21 06:51 136 H 23 160/108 H 94 08/14/21 06:49 130 H 21 175/93 H 95 08/14/21 06:46 132 H 23 154/105 H 89 L 08/14/21 06:00 100 H 25 H 151/111 H 98 08/14/21 05:01 98 H 21 100 08/14/21 05:00 91 H 21 168/87 H 99 08/14/21 04:03 96 H 21 96 08/14/21 04:01 96 H 21 120/104 H 95 08/14/21 04:00 36.7 C 96 H 21 97 08/14/21 03:01 95 H 26 H 123/83 95 08/14/21 03:00 97 H 23 94 08/14/21 02:01 98 H 22 144/72 H 95 08/14/21 02:00 96 H 21 94 08/14/21 01:00 98 H 20 126/87 96 08/14/21 00:01 92 H 23 140/81 96 08/14/21 00:00 36.5 C 120 H 08/13/21 23:33 88 18 95 08/13/21 23:01 88 20 144/67 H 98 08/13/21 22:40 126 H 08/13/21 22:02 88 17 94 08/13/21 22:00 90 24 99/76 L 95 08/13/21 21:51 89 21 138/78 99 Critical Care Results & Data Vital Signs (Past 12 Hours) Vital Signs Temp Pulse Pulse Resp BP Pulse Ox 08/14/21 09:02 36.8 C 08/14/21 08:53 107 H 27 H 95 08/14/21 08:00 129 H 23 95 08/14/21 07:38 127 H 24 93 08/14/21 07:17 132 H 24 95 08/14/21 07:00 133 H 32 H 163/82 H 93 08/14/21 06:52 122 H 25 H 146/83 H 91 08/14/21 06:51 136 H 23 160/108 H 94 08/14/21 06:49 130 H 21 175/93 H 95 08/14/21 06:46 132 H 23 154/105 H 89 L 08/14/21 06:00 100 H 25 H 151/111 H 98 08/14/21 05:01 98 H 21 100 08/14/21 05:00 91 H 21 168/87 H 99 08/14/21 04:03 96 H 21 96 08/14/21 04:01 96 H 21 120/104 H 95 08/14/21 04:00 36.7 C 96 H 21 97 08/14/21 03:01 95 H 26 H 123/83 95 08/14/21 03:00 97 H 23 94 08/14/21 02:01 98 H 22 144/72 H 95 08/14/21 02:00 96 H 21 94 08/14/21 01:00 98 H 20 126/87 96 08/14/21 00:01 92 H 23 140/81 96 08/14/21 00:00 36.5 C 120 H 08/13/21 23:33 88 18 95 08/13/21 23:01 88 20 144/67 H 98 08/13/21 22:40 126 H 08/13/21 22:02 88 17 94 08/13/21 22:00 90 24 99/76 L 95 08/13/21 21:51 89 21 138/78 99 Lab & Micro Results (Past 24 Hours) RBC 2.67 M/uL (4.7-6.1) L 08/14/21 WBC 6.40 K/uL (4.8-10.8) 08/14/21 Hgb 8.0 g/dL (14.0-18.0) L 08/14/21 Hct 25.8 % (42-52) L 08/14/21 MCV 96.6 fL (80-100) 08/14/21 MCH 30.0 pg (25-34) 08/14/21 MCHC 31.0 g/dL (32-36) L 08/14/21 RDW Standard Deviation 49.8 fL (36.4-46.3) H 08/14/21 RDW Coefficient of Variation 14.0 % (11.5-14.5) 08/14/21 Plt Count 311 K/uL (130-400) 08/14/21 MPV 8.7 fL (7.4-10.4) 08/14/21 Neutrophils (%) (Auto) 94.4 % 08/14/21 Lymphocytes (%) (Auto) 4.2 % 08/14/21 Monocytes # (Auto) 0.07 K/uL (0.11-0.59) L 08/14/21 Eosinophils # (Auto) 0.00 K/uL (0-0.5) 08/14/21 Immature Granulocyte % (Auto) 0.3 % 08/14/21 Neutrophils # (Auto) 6.04 K/uL (1.4-6.5) 08/14/21 Lymphocytes # (Auto) 0.27 K/uL (1.2-3.4) L 08/14/21 Monocytes # (Auto) 0.07 K/uL (0.11-0.59) L 08/14/21 Eosinophils # (Auto) 0.00 K/uL (0-0.5) 08/14/21 Basophils # (Auto) 0.00 K/uL (0-0.2) 08/14/21 Immature Granulocyte # (Auto) 0.02 K/uL (0.00-0.02) 08/14/21 Na 134 mmol/L (136-145) L 08/14/21 K 4.5 mmol/L (3.5-5.1) 08/14/21 Cl 96 mmol/L (98-107) L 08/14/21 CO2 32 mmol/L (21-32) 08/14/21 Anion Gap 6 (3-11) 08/14/21 BUN 16 mg/dl (6-23) 08/14/21 Creatinine 0.54 mg/dl (0.6-1.4) L 08/14/21 Estimated GFR ( Amer) 126.8 ml/min 08/14/21 Estimated GFR (Non-Af Amer) 109.4 ml/min 08/14/21 BUN/Creatinine Ratio 29.6 (10-20) H 08/14/21 Glu 131 mg/dl (70-99(Fasting)) H 08/14/21 Ca 7.7 mg/dl (8.5-10.1) L 08/14/21 Phosphorus Level 4.3 mg/dl (2.5-4.9) 08/14/21 Total Bilirubin 0.3 mg/dl (0.2-1.0) 08/14/21 Direct Bilirubin 0.1 mg/dl (0-0.2) 08/14/21 AST 29 U/L (13-39) 08/14/21 ALT 20 U/L (7-52) 08/14/21 Alkaline Phosphatase 170 U/L (34-104) H 08/14/21 TP 5.7 gm/dl (6.0-8.3) L 08/14/21 Albumin 3.4 gm/dl (3.4-5.0) 08/14/21 Mg 2.2 mg/dl (1.7-2.4) 08/14/21 04:43 08/14/21 Calcium Level 7.7 mg/dl (8.5-10.1) L 08/14/21 04:43 08/14/21 Enrique Test Pass 08/14/21 11:15 08/14/21 Microbiology 08/13/21 21:45 Gram Stain - Final Leg Diagnostic Findings (Past 24 Hours) KUB X-Ray 08/13/21 10:11 KUB CLINICAL HISTORY: OGT placement COMPARISON STUDY: CT of the chest, abdomen pelvis August 12, 2021. FINDINGS: Tip of endotracheal tube is 5.1 cm above the barbi. Tip of nasogastric tube projects over the proximal stomach. The tube could be advanced an additional 4 cm. Sidehole projects over the gastroesophageal junction. Bilateral pleural effusions, right larger than left, are again noted. There are associated bibasilar opacities. Emphysema with possible mild pulmonary edema is present. No pneumothorax. IMPRESSION: Tip of nasogastric tube projects over the proximal stomach. The tube could be advanced 4 cm. ACT 112: Negative or not required by law. Electronically signed by: Candelario Blair M.D. 08/13/2021 11:04 AM I & O Totals 24 Hours 08/13/21 08/14/21 08/15/21 06:59 06:59 06:59 Intake Total 1129.733 / 2426.988 0950.556 / 2700.556 1006.057 / 1006.057 Output Total 400 / 400 1000 / 1000 Balance 729.733 / 621.632 0142.556 / 6577.566 0326.057 / 1006.057 Cumulative 08/12/21 22:47 thru 08/14/21 09:11 Intake Total 4836.346 Output Total 1400 Balance 3436.346 RT Ventilator Mngmt (Last Documented) Ventilator Ordered Settings Ventilator Support Mode CPAP 08/13/21 16:00 Respiratory Rate 27 08/14/21 08:53 Ventilator Tidal Volume 500 08/13/21 12:00 Setting Minute Ventilation 11.0 08/13/21 11:17 Ventilator Positive Pressure 10 08/13/21 16:00 Support Setting Positive End Expiratory 5 08/13/21 16:00 Pressure Fraction of Inspired Oxygen 40 08/14/21 08:53 Peak Inspiratory Flow 53 08/13/21 03:25 Machine Comment extubated to 4L oxy mask, SPO2 95 08/13/21 16:05 % Ventilator - PT Measurements Respiratory Rate 27 Exhaled Tidal Volume 494 Minute Ventilation 11.0 Peak Inspiratory Airway 26 Pressure Plateau Pressure 13 Respiratory Cycle Inspiratory: 1:2.6 Expiratory Ratio Inspiratory Phase Time 0.75 End-Tidal CO2 33 Static Lung Compliance 61.75 Dynamic Lung Compliance 23.52 Normal Static Lung Compliance 46.00 Patient Measurements Comment patient very agitated and clenching body against the vent. Sedation added due to high peak pressuring Coding Level of Care Code Critical Care 1st 30-74 mins Diagnoses Admitted to intensive care unit Z78.9 Altered mental status R41.82 Altered mental status type: unspecified Acute respiratory failure J96.00 Hand laceration S61.419A Multiple skin tears T14.8XXA Fall W19.XXXA (1) Altered mental status Altered mental status type: unspecified Qualified Code(s): R41.82 - Altered mental status, unspecified
[2021-08-14] MEDS: MULTI VIT W/MINERALS LIQUID 15 ML UDP PO SCH (10:00)
[2021-08-14] MEDS: THIAMINE HCL 100 MG TAB PO SCH (10:00)
[2021-08-14 11:29] LABS: iSTAT Allen Test Pass; iSTAT Arterial Blood Gas HCO3 34 meg/L (19-24); iSTAT Arterial Blood Gas pCO2 78 mmHg (35-46); iSTAT Arterial Blood Gas pH 7.25 (7.35-7.45); iSTAT Arterial Blood Gas pO2 102 mmHg (80-95); iSTAT Carbon Dioxide 36 mmol/L (24-31); iSTAT FiO2 40 %; iSTAT Site L Radial
[2021-08-14] MEDS ORDERED: cefTRIAXone SODIUM 2,000 MG in DEXTROSE 5% 50 ML IV SCH (12:00)
[2021-08-14] MEDS: METOPROLOL SUCC 50MG EXT REL TAB PO SCH (12:42)
[2021-08-14] MEDS ORDERED: AZITHROMYCIN 500 MG in DEXTROSE 5% 250 ML IV ONE (13:00)
--- NOTE | 2021-08-14 14:05 | Consultation ---
Date of Consultation August 14, 2021 Assessment & Plan (1) Cervical compression fracture: Dr. Lima has reviewed films. Currently unable to assess if cervical fracture is acute versus chronic due to sedation, therefore unable to perform physical exam. We will therefore reassess once he is awake. In the interim would recommend continuation of [place] J collar at all times. Fracture is stable. Surgical intervention not warranted at this time. History of Present Illness Reason for Consultation: C7 fracture Attending Physician: Yeni Westbrook MD History of Present Illness Is a 66-year-old gentleman we are asked to see regarding C7 vertebral body fracture found on CT scan. Patient is in the ICU and sedated. Therefore unable to obtain history from him. It does appear that he has had some falls recently. Currently in a [place] J collar. Allergies Allergy/AdvReac Type Severity Reaction Status Date / Time sulfamethoxazole Allergy Unknown Verified 08/13/21 01:48 [From Bactrim] trimethoprim [From Bactrim] Allergy Unknown Verified 08/13/21 01:48 Home Medications Medication Instructions Recorded Confirmed Type acetaminophen 325 mg tablet 650 mg PO Q4 PRN 08/13/21 08/13/21 History (Tylenol) albuterol sulfate 90 mcg/actuation 1 inh INHALATION Q4 PRN 08/13/21 08/13/21 History aerosol inhaler atorvastatin 20 mg tablet 20 mg PO HS 08/13/21 08/13/21 History calcium carbonate 500 mg-vitamin 1 tab PO TID 08/13/21 08/13/21 History D3 5 mcg (200 unit) tablet (Calcium 500 + D) diltiazem HCl 240 mg capsule,24 240 mg PO DAILY 08/13/21 08/13/21 History hr,extended release docusate sodium 100 mg capsule 100 mg PO BID 08/13/21 08/13/21 History ergocalciferol (vitamin D2) 50,000 50,000 unit PO 2XWK 08/13/21 08/13/21 History unit tablet fluticasone fur. 100 mcg-umeclid 1 inh INHALATION DAILY 08/13/21 08/13/21 History 62.5 mcg-vilant 25 mcg inhalat.powder (Trelegy Ellipta) folic acid 1 mg tablet 1 mg PO DAILY 08/13/21 08/13/21 History gabapentin 100 mg tablet 200 mg PO Q8 08/13/21 08/13/21 History magnesium hydroxide 400 mg/5 mL 0 ml PO DAILY PRN 08/13/21 08/13/21 History oral suspension (Milk of Magnesia) metoprolol succinate 50 mg 50 mg PO DAILY 08/13/21 08/13/21 History tablet,extended release 24 hr multivitamin,pc-jnof-Xx-FA-min 1 tab PO DAILY 08/13/21 08/13/21 History ondansetron HCl 4 mg tablet 4 mg PO Q6H PRN 08/13/21 08/13/21 History oxycodone 5 mg tablet 5 mg PO Q4H PRN 08/13/21 08/13/21 History oxycodone 5 mg tablet 10 mg PO Q4H PRN 08/13/21 08/13/21 History potassium chloride 10 mEq 20 meq PO DAILY 08/13/21 08/13/21 History tablet,extended release prednisone 2.5 mg tablet 2.5 mg PO Q OTHER DAY 08/13/21 08/13/21 History rivaroxaban 20 mg tablet (Xarelto) 20 mg PO PM 08/13/21 08/13/21 History sennosides 8.6 mg-docusate sodium 1 tab-cap PO DAILY PRN 08/13/21 08/13/21 History 50 mg tablet (Senna-S) sodium chloride 1 gram tablet 1,000 mg PO Q8 08/13/21 08/13/21 History tamsulosin 0.4 mg capsule 0.4 mg PO DAILY 08/13/21 08/13/21 History thiamine HCl (vitamin B1) 100 mg 100 mg PO DAILY 08/13/21 08/13/21 History tablet Patient History Medical History Alcohol abuse COPD (chronic obstructive pulmonary disease) DVT (deep venous thrombosis) Surgical History No pertinent past surgical history Social History Smoking Status: Unknown if ever smoked Communication Ability: Unable marital status: Unknown Current Living Situation Comment: Patient intubated and sedated; unable to answer Assistive Devices: BiPap and Oxygen - Continuous Assistive Devices Comment: Patient intubated and sedated; unable to answer Review of Systems Review of Systems: All systems reviewed & are unremarkable except as noted in HPI & below Physical Exam Physical Exam: unable to be performed Results & Data ([facility]) Vital Signs (Past 12 Hours) Vital Signs Temp Pulse Pulse Resp BP Pulse Ox 08/14/21 13:00 70 16 117/71 97 08/14/21 12:30 70 22 100 08/14/21 12:01 104 H 128/77 98 08/14/21 12:00 36.6 C 101 H 74 L 08/14/21 11:00 95 H 135/89 100 08/14/21 10:30 102 H 22 92 08/14/21 10:00 82 32 H 115/68 99 08/14/21 09:02 36.8 C 08/14/21 09:01 96 H 25 H 107/59 L 96 08/14/21 09:00 96 H 24 08/14/21 08:53 107 H 27 H 95 08/14/21 08:00 36.8 C 128 H 23 95 08/14/21 07:38 127 H 24 93 08/14/21 07:17 132 H 24 95 08/14/21 07:00 133 H 32 H 163/82 H 93 08/14/21 06:52 122 H 25 H 146/83 H 91 08/14/21 06:51 136 H 23 160/108 H 94 08/14/21 06:49 130 H 21 175/93 H 95 08/14/21 06:46 132 H 23 154/105 H 89 L 08/14/21 06:00 100 H 25 H 151/111 H 98 08/14/21 05:01 98 H 21 100 08/14/21 05:00 91 H 21 168/87 H 99 08/14/21 04:03 96 H 21 96 08/14/21 04:01 96 H 21 120/104 H 95 08/14/21 04:00 36.7 C 96 H 21 97 08/14/21 03:01 95 H 26 H 123/83 95 08/14/21 03:00 97 H 23 94 Diagnostic Findings [facility] [place] [phone] CT Scan Report Patient:GEOVANI PARSONS Admit Date:08/13/21 MR#:[id number] Address1:[place] Acct ID:[id number] Address2: Date:1955 [facility] Zip:[place] [address] Age:66 Location:1E Sex:M Room/Bed:[facility] Att Phy:Ector Almanzar MD Diagnosis:FALL, RESP FILURE Jayda Phy:[facility] Service Date:08/12/21 Fam Phy: Interpreting Phy:Ramon Song MDAdmit Phy:Mick Parry MD Ordering Phy:Aysha Henry PA-C cc: ~ CERVICAL SPINE CT CT DOSE: HISTORY: Altered mental status. Fall. TECHNIQUE: Multiaxial CT images of the cervical spine were performed and reformatted in the sagittal and coronal plane without the use of contrast. A dose lowering technique was utilized adhering to the principles of ALARA. COMPARISON: None. FINDINGS: Mild to moderate anterior wedging at the C7 vertebral body with mild sclerosis along the superior endplate. This may represent a subacute compression fracture. This demonstrate up to 30% loss of height anteriorly. No associated retropulsion. No additional fractures identified within the cervical spine. There are severe disc space narrowing at C3-C4 and moderate disc space narrowing at C5-C6. There is 3 mm of anterolisthesis of C4 on C5. There are severe facet degenerative changes at C4-C5. Prevertebral soft tissues are unremarkable. Prevertebral soft tissues and the C1-C2 interval are intact. No pneumothorax. Emphysema noted at the lung apices. IMPRESSION: 1. Mild to moderate anterior wedging at the C7 vertebral body which is age indeterminate but may represent a subacute compression fracture. No associated retropulsion. 2. There is 3 mm of anterolisthesis of C4 on C5 which favors long-standing degenerative change. ACT 112: Negative or not required by law. Electronically signed by: Ramon Song M.D. 08/13/2021 7:09 AM Dictated:08/13/21701 Transcribed: 08/13/21701
[2021-08-14 15:44] LABS: Base Excess VBG -0.5 mEq/L; HCO3 VBG 27 mmol/L; PCO2 VBG 62 mmHg (38-50); PO2 VBG 31 mmHg; pH VBG 7.26 (7.36-7.41)
--- NOTE | 2021-08-14 15:55 | Hospitalist Progress Note ---
Date of Service August 14, 2021 Assessment & Plan Plan: Acute metabolic encephalopathy -in setting of hypercarbia Acute (likely on chronic) hypoxic and hypercarbic respiratory failure -required intubation in the field, extubated to BIPAP but patient unable to tolerate BIPAP without sedation. -He was placed on precedex drip and placed on BiPAP for several hours today C7 fracture -continue cervical collar at all times (although patient removes his collar at times) Sacral fracture -pain control Hyponatremia -continue sodium tablets Recent DVT -Xarelto. He is at increased risk for bleed due to history of alcohol abuse and frequent falls. If he was to be discharged back to rehab, would continue Xarelto. If he is being discharged home--> would need to re-consider risk/benefit. Anemia -Iron levels low, B12, folate normal -No signs of active bleed. start PO iron when able History of alcohol abuse -has been hospitalized or at a SNF in past 2 weeks. Doubt he has had access to alcohol. altered mental status not likely from alcohol withdrawal. Goals of care -He would benefit from overall GOC discussion given his poor functional status Admission and Anticipated Discharge Date Admission Date: August 13, 2021 Subjective Extubated to BIPAP today Patient unable to tolerate his BIPAP but also with dyspnea Patient continues to remove his cervical collar Patient with no complaints currently, remains calm on precedex Physical Exam Physical Exam: appears older than stated age Appears chronically ill, cachetic ENMT: Wearing cervical collar currently Respiratory: No accessory muscle use, no wheezing/rhonchi/rales Cardiovascular: Mildly tachycardic, no murmurs/rubs/gallops Gastrointestinal (Abdomen): soft, non tender Skin: multiple areas of skin breakdown with leakage of fluid Neurologic: awake, hard of hearing, knows his name and knows he is at [facility] Results & Data Results & Data ([facility]) Vital Signs (Past 12 Hours) Vital Signs Temp Pulse Pulse Resp BP Pulse Ox 08/14/21 15:25 93 H 28 H 92 08/14/21 15:01 104 H 20 147/120 H 88 L 08/14/21 15:00 101 H 21 90 08/14/21 14:09 81 21 127/80 95 08/14/21 14:00 68 23 97 08/14/21 13:00 70 16 117/71 97 08/14/21 12:30 70 22 100 04/06/22 12:01 104 H 128/77 98 08/14/21 12:00 36.6 C 101 H 74 L 08/14/21 11:00 95 H 135/89 100 08/14/21 10:30 102 H 22 92 08/14/21 10:00 82 32 H 115/68 99 08/14/21 09:02 36.8 C 08/14/21 09:01 96 H 25 H 107/59 L 96 08/14/21 09:00 96 H 24 08/14/21 08:53 107 H 27 H 95 08/14/21 08:00 36.8 C 128 H 23 95 08/14/21 07:38 127 H 24 93 08/14/21 07:17 132 H 24 95 08/14/21 07:00 133 H 32 H 163/82 H 93 08/14/21 06:52 122 H 25 H 146/83 H 91 08/14/21 06:51 136 H 23 160/108 H 94 08/14/21 06:49 130 H 21 175/93 H 95 08/14/21 06:46 132 H 23 154/105 H 89 L 08/14/21 06:00 100 H 25 H 151/111 H 98 08/14/21 05:01 98 H 21 100 08/14/21 05:00 91 H 21 168/87 H 99 08/14/21 04:03 96 H 21 96 08/14/21 04:01 96 H 21 120/104 H 95 08/14/21 04:00 36.7 C 96 H 21 97 Laboratory Results Short CBC 08/14/21 Range/Units 04:43 WBC 6.40 (4.8-10.8) K/uL Hgb 8.0 L (14.0-18.0) g/dL Hct 25.8 L (42-52) % Plt Count 311 (130-400) K/uL BMP 08/14/21 04:43 Sodium 134 L Potassium 4.5 Chloride 96 L Carbon Dioxide 32 BUN 16 Creatinine 0.54 L Glucose 131 H Calcium 7.7 L Liver Function 08/14/21 Range/Units 04:43 Total Bilirubin 0.3 (0.2-1.0) mg/dl Direct Bilirubin 0.1 (0-0.2) mg/dl AST 29 (13-39) U/L ALT 20 (7-52) U/L Alkaline Phosphatase 170 H (34-104) U/L Albumin 3.4 (3.4-5.0) gm/dl Medications Administered Current Inpatient Medications Gabapentin (Gabapentin 100 Mg Cap) 200 mg PO Q8 [facility] Stop: 09/12/21 05:59 Last Admin: 08/14/21 15:37 Dose: Not Given Documented by: Sodium Chloride (Nss 1000ml) 1,000 mls @ 75 mls/hr IV .[id number] [facility] Stop: 09/12/21 03:50 Last Admin: 08/14/21 08:38 Dose: 75 mls/hr Documented by: Methylprednisolone 40 mg/ (Syringe) 0.64 mls @ 1.5 mls/min IV Q8H [facility] Stop: 09/12/21 09:59 Last Admin: 08/14/21 10:04 Dose: 1.5 mls/min Documented by: Dexmedetomidine/Sodium Chloride (Precedex) 200 mcg in 50 mls @ 7.91 mls/hr IV .Q6H20M [facility]; Protocol Stop: 08/18/21 08:14 Last Admin: 08/14/21 13:38 Dose: 0.8 mcg/kg/hr, 15.8 mls/hr Documented by: Ceftriaxone Sodium 2,000 mg/ (Dextrose) 70 mls @ 140 mls/hr IV Q24H [facility] Stop: 08/18/21 12:29 Last Infusion: 08/14/21 13:34 Dose: Infused Documented by: Azithromycin 250 mg/ Dextrose 252.5 mls @ 126.25 mls/hr IV Q24H [facility] Stop: 08/18/21 14:59 Ipratropium [place] (Ipratropium [place] Neb Soln 0.02% 2.5 Ml Vial) 0.5 mg INH Q6R [facility] Stop: 09/12/21 06:59 Last Admin: 08/14/21 12:26 Dose: 0.5 mg Documented by: Levalbuterol HCl (Levalbuterol 1.25mg/0.5ml Neb) 1.25 mg INH Q6R [facility] Stop: 09/12/21 06:59 Last Admin: 08/14/21 12:26 Dose: 1.25 mg Documented by: Metoprolol Succinate (Metoprolol Succ 50mg Ext Rel Tab) 50 mg PO QAM [facility] Stop: 09/13/21 12:59 Last Admin: 08/14/21 12:42 Dose: Not Given Documented by: Miscellaneous (Icu Protocol For Hyperglycemia) 1 ea N/A PRN PRN; Protocol PRN Reason: Hyperglycemia Protocol Stop: 08/15/21 03:50 Multivitamins/Minerals (Multi Vit W/Minerals Liquid 15 Ml Udp) 15 ml PO DAILY [facility] Stop: 09/13/21 08:59 Last Admin: 08/14/21 10:00 Dose: Not Given Documented by: Rivaroxaban (Rivaroxaban 20 Mg Tab) 20 mg PO PM [facility] Stop: 09/12/21 20:59 Last Admin: 08/13/21 21:37 Dose: 20 mg Documented by: Sodium Chloride (Sodium Chloride 1 Gm Tablet) 1 gm PO Q8 [facility] Stop: 09/12/21 05:59 Last Admin: 08/14/21 15:37 Dose: Not Given Documented by: Tamsulosin HCl (Tamsulosin Hcl 0.4 Mg Cap) 0.4 mg PO DAILY [facility] Stop: 09/12/21 08:59 Last Admin: 08/13/21 10:14 Dose: Not Given Documented by: Thiamine HCl (Thiamine Hcl 100 Mg Tab) 100 mg PO DAILY [facility] Stop: 09/12/21 08:59 Last Admin: 08/14/21 10:00 Dose: Not Given Documented by:
[2021-08-14 16:10] LABS: Oxygen Saturation VBG < 60.0 %
[2021-08-14] MEDS: RIVAROXABAN 20 MG TAB PO SCH (20:39)
[2021-08-14] MEDS ORDERED: ALBUT/IPRATROP 3MG/0.5MG NEB 3 ML VIAL NEB STA (21:18)
[2021-08-14] MEDS ORDERED: ALBUT/IPRATROP 3MG/0.5MG NEB 3 ML VIAL ONE (21:26)
[2021-08-15] MEDS: IPRATROPIUM BROMIDE NEB SOLN 0.02% 2.5 ML VIAL INH SCH ×4 (00:49→19:14)
[2021-08-15] MEDS: LEVALBUTEROL 1.25MG/0.5ML NEB INH SCH ×4 (00:49→19:14)
[2021-08-15] MEDS: methylPREDNISolone 40 MG in SYRINGE 0 ML IV SCH ×2 (02:27→10:41)
[2021-08-15 04:44] LABS: Hemoglobin 8.2 g/dL (14.0-18.0); Immature Granulocytes # (auto) 0.01 K/uL (0.00-0.02); Immature Granulocytes % (auto) 0.2 %; Lymphocytes # (auto) 0.33 K/uL (1.2-3.4); Lymphocytes % (auto) 6.1 %; Mean Corpuscular Hemoglobin 30.5 pg (25-34); Mean Corpuscular Hgb Conc 31.5 g/dL (32-36); Mean Corpuscular Volume 96.7 fL (80-100); Mean Platelet Volume 8.9 fL (7.4-10.4); Monocytes # (auto) 0.27 K/uL (0.11-0.59); Neutrophils # (auto) 4.83 K/uL (1.4-6.5); Neutrophils % (auto) 88.7 %; Platelet Count 293 K/uL (130-400); RDW Coefficient of Variation 14.1 % (11.5-14.5); RDW Standard Deviation 50.2 fL (36.4-46.3); Red Blood Count 2.69 M/uL (4.7-6.1); White Blood Count 5.44 K/uL (4.8-10.8)
[2021-08-15 05:16] LABS: Albumin Level 3.2 gm/dl (3.4-5.0); BUN Creatinine Ratio 34.9 (10-20); Bilirubin,Total 0.3 mg/dl (0.2-1.0); Calcium 7.8 mg/dl (8.5-10.1); Creatinine Clr Calc Pharmacy 174.5 ml/min; Est GFR (African American) 139.3 ml/min; Est GFR (Non-African American) 120.2 ml/min; Magnesium 2.3 mg/dl (1.7-2.4); Phosphorus 2.7 mg/dl (2.5-4.9); Potassium 4.5 mmol/L (3.5-5.1); Total Protein 5.4 gm/dl (6.0-8.3)
[2021-08-15] MEDS: GABAPENTIN 100 MG CAP PO SCH ×3 (05:23→20:53)
[2021-08-15] MEDS: SODIUM CHLORIDE 1 GM TABLET PO SCH (05:23)
--- NOTE | 2021-08-15 08:10 | XRay Report ---
XR chest 1V portable CLINICAL HISTORY: f/u COMPARISON STUDY: Chest radiograph and chest CT August 12, 2021. FINDINGS: No pneumothorax. Severe emphysema is better depicted on prior chest CT. Small bilateral ple ural effusions, right larger than left, persist. There are associated bibasilar opacities. Interstiti al thickening has slightly improved. Cardiac size is normal. Mediastinal contours are normal. IMPRESSION: 1. Interval improvement in interstitial thickening. Small bilateral pleural effusions, right larger t zee left. 2. Emphysema. ACT 112: Negative or not required by law. Electronically signed by: Candelario Blair M.D. 08/15/2021 8:09 AM
[2021-08-15] MEDS: THIAMINE HCL 100 MG TAB PO SCH (08:17)
[2021-08-15] MEDS: METOPROLOL SUCC 50MG EXT REL TAB PO SCH (08:17)
[2021-08-15] MEDS: MULTI VIT W/MINERALS LIQUID 15 ML UDP PO SCH (08:18)
[2021-08-15] MEDS: SODIUM CHLORIDE 0.9% 1000ML 1,000 ML IV SCH (08:22)
[2021-08-15] MEDS: dexMEDEtomidine 200 MCG/50 ML BAG IV SCH (09:00)
--- NOTE | 2021-08-15 09:55 | Critical Care Progress Note ---
Date of Service August 15, 2021 Assessment & Plan (1) Admitted to intensive care unit: Plan: Reason Critically Ill: 66-year-old male presenting with altered mental status after sustaining multiple falls with associated lacerations requiring endotracheal intubation with ongoing management in a patient with likely degree of CO2 narcosis. NEURO - * Off Precedex * Acute agitation: resolved * Continue home gabapentin C7 wedge compression - Continue cervical collar - Orthopedics consult CARDIAC/VASCULAR - * DVT of the RIGHT lower extremity: * Patient on Xarelto * Restart metoprolol XL 50mg daily RESPIRATORY - * Acute on chronic hypoxic respiratory failure with hypercapnia: * Required emergent endotracheal intubation. * Transition to oral steroids, * nebs, * antibiotic coverage in the significant COPD patient. * Intermittent bipap use. Still at risk for respiratory failure GI/NUTRITION - * Regular diet RENAL/LYTES - * Stopping additional fluid * Stopping salt tabs - * D/C [facility] - * No history of diabetes or thyroid disease HEME - * Anemia * Of uncertain etiology ID - * De-escalate to Zithromax LINES/IV ACCESS - * PIVs x2 DVT PROPHYLAXIS - * Xarelto * SCDs Patient was discussed multidisciplinary rounds Stable for downgrade from ICU. (2) Altered mental status: (3) Acute respiratory failure: (4) Hand laceration: (5) Multiple skin tears: (6) Fall: Admission and Anticipated Discharge Date Admission Date: August 13, 2021 Subjective Breathing improved. Would like to speak with surgeons today, does not want to risk paralysis. Physical Exam Physical Exam: General: Alert. nontoxic. Skin: Warm, dry, Head: Atraumatic Ears, nose, mouth and throat: airway patent Cardiovascular: Normal peripheral perfusion Respiratory: Increased I to E ratio, no accessory muscle use Gastrointestinal: Non distended Musculoskeletal: No deformity Results & Data Results & Data ([facility]) Vital Signs (Past 12 Hours) Vital Signs Temp Pulse Pulse Resp BP Pulse Ox 08/15/21 09:06 107 H 08/15/21 09:01 36.7 C 08/15/21 09:00 90 23 114/60 88 L 08/15/21 08:00 104 H 22 126/68 99 08/15/21 07:39 104 H 22 100 08/15/21 07:00 105 H 28 H 122/94 96 08/15/21 06:00 130 H 27 H 140/89 92 08/15/21 05:00 98 H 23 129/74 100 08/15/21 04:00 36.4 C 96 H 21 128/66 100 08/15/21 03:00 86 17 113/58 L 98 08/15/21 02:46 82 21 96 08/15/21 02:00 71 16 130/69 97 08/15/21 01:00 80 15 118/62 99 08/15/21 00:52 76 20 97 08/15/21 00:50 96 H 08/15/21 00:00 36.6 C 86 19 101/76 93 08/14/21 23:24 87 22 96 08/14/21 23:00 91 H 24 107/62 96 08/14/21 22:00 91 H 22 122/70 97 Critical Care Results & Data Vital Signs (Past 12 Hours) Vital Signs Temp Pulse Pulse Resp BP Pulse Ox 08/15/21 09:06 107 H 08/15/21 09:01 36.7 C 08/15/21 09:00 90 23 114/60 88 L 08/15/21 08:00 104 H 22 126/68 99 08/15/21 07:39 104 H 22 100 08/15/21 07:00 105 H 28 H 122/94 96 08/15/21 06:00 130 H 27 H 140/89 92 08/15/21 05:00 98 H 23 129/74 100 08/15/21 04:00 36.4 C 96 H 21 128/66 100 08/15/21 03:00 86 17 113/58 L 98 08/15/21 02:46 82 21 96 08/15/21 02:00 71 16 130/69 97 08/15/21 01:00 80 15 118/62 99 08/15/21 00:52 76 20 97 08/15/21 00:50 96 H 08/15/21 00:00 36.6 C 86 19 101/76 93 08/14/21 23:24 87 22 96 08/14/21 23:00 91 H 24 107/62 96 Lab & Micro Results (Past 24 Hours) RBC 2.69 M/uL (4.7-6.1) L 08/15/21 WBC 5.44 K/uL (4.8-10.8) 08/15/21 Hgb 8.2 g/dL (14.0-18.0) L 08/15/21 Hct 26.0 % (42-52) L 08/15/21 MCV 96.7 fL (80-100) 08/15/21 MCH 30.5 pg (25-34) 08/15/21 MCHC 31.5 g/dL (32-36) L 08/15/21 RDW Standard Deviation 50.2 fL (36.4-46.3) H 08/15/21 RDW Coefficient of Variation 14.1 % (11.5-14.5) 08/15/21 Plt Count 293 K/uL (130-400) 08/15/21 MPV 8.9 fL (7.4-10.4) 08/15/21 Neutrophils (%) (Auto) 88.7 % 08/15/21 Lymphocytes (%) (Auto) 6.1 % 08/15/21 Monocytes # (Auto) 0.27 K/uL (0.11-0.59) 08/15/21 Eosinophils # (Auto) 0.00 K/uL (0-0.5) 08/15/21 Immature Granulocyte % (Auto) 0.2 % 08/15/21 Neutrophils # (Auto) 4.83 K/uL (1.4-6.5) 08/15/21 Lymphocytes # (Auto) 0.33 K/uL (1.2-3.4) L 08/15/21 Monocytes # (Auto) 0.27 K/uL (0.11-0.59) 08/15/21 Eosinophils # (Auto) 0.00 K/uL (0-0.5) 08/15/21 Basophils # (Auto) 0.00 K/uL (0-0.2) 08/15/21 Immature Granulocyte # (Auto) 0.01 K/uL (0.00-0.02) 08/15/21 Na 136 mmol/L (136-145) 08/15/21 K 4.5 mmol/L (3.5-5.1) 08/15/21 Cl 99 mmol/L (98-107) 08/15/21 CO2 31 mmol/L (21-32) 08/15/21 Anion Gap 6 (3-11) 08/15/21 BUN 15 mg/dl (6-23) 08/15/21 Creatinine 0.43 mg/dl (0.6-1.4) L 08/15/21 Estimated GFR ( Amer) 139.3 ml/min 08/15/21 Estimated GFR (Non-Af Amer) 120.2 ml/min 08/15/21 BUN/Creatinine Ratio 34.9 (10-20) H 08/15/21 Glu 114 mg/dl (70-99(Fasting)) H 08/15/21 Ca 7.8 mg/dl (8.5-10.1) L 08/15/21 Phosphorus Level 2.7 mg/dl (2.5-4.9) 08/15/21 Total Bilirubin 0.3 mg/dl (0.2-1.0) 08/15/21 Direct Bilirubin 0.0 mg/dl (0-0.2) 08/15/21 AST 32 U/L (13-39) 08/15/21 ALT 27 U/L (7-52) 08/15/21 Alkaline Phosphatase 163 U/L (34-104) H 08/15/21 TP 5.4 gm/dl (6.0-8.3) L 08/15/21 Albumin 3.2 gm/dl (3.4-5.0) L 08/15/21 Mg 2.3 mg/dl (1.7-2.4) 08/15/21 04:29 08/15/21 Calcium Level 7.8 mg/dl (8.5-10.1) L 08/15/21 04:29 08/15/21 Venous Blood pH 7.26 (7.36-7.41) L 08/14/21 15:30 08/14/21 Venous Blood Partial Pressure CO2 62 mmHg (38-50) H 08/14/21 15:30 08/14/21 Venous Blood Partial Pressure O2 31 mmHg 08/14/21 15:30 08/14/21 Venous Blood HCO3 27 mmol/L 08/14/21 15:30 08/14/21 Venous Blood Base Excess -0.5 mEq/L 08/14/21 15:30 08/14/21 Venous Blood Oxygen Saturation < 60.0 % 08/14/21 15:30 08/14/21 Blood Gas Barometric Pressure 725.6 mm/Hg 08/14/21 15:30 08/14/21 Enrique Test Pass 08/14/21 11:15 08/14/21 Blood Gas Barometric Pressure 725.6 mm/Hg 08/14/21 15:30 08/14/21 Microbiology 08/13/21 19:48 Aerobic Blood Culture - Preliminary Blood No growth in Aerobic bottle after 24 hours. Anaerobic Blood Culture - Preliminary No growth in Anaerobic bottle after 24 hours. 08/13/21 19:51 Aerobic Blood Culture - Preliminary Blood No growth in Aerobic bottle after 24 hours. Anaerobic Blood Culture - Preliminary No growth in Anaerobic bottle after 24 hours. 08/13/21 21:45 Gram Stain - Final Leg Deep Wound Culture - Preliminary No growth to date. Diagnostic Findings (Past 24 Hours) Chest X-Ray 08/15/21 07:00 XR chest 1V portable CLINICAL HISTORY: f/u COMPARISON STUDY: Chest radiograph and chest CT August 12, 2021. FINDINGS: No pneumothorax. Severe emphysema is better depicted on prior chest CT. Small bilateral pleural effusions, right larger than left, persist. There are associated bibasilar opacities. Interstitial thickening has slightly improved. Cardiac size is normal. Mediastinal contours are normal. IMPRESSION: 1. Interval improvement in interstitial thickening. Small bilateral pleural effusions, right larger than left. 2. Emphysema. ACT 112: Negative or not required by law. Electronically signed by: Candelario Blair M.D. 08/15/2021 8:09 AM I & O Totals 24 Hours 08/14/21 08/15/21 08/16/21 06:59 06:59 06:59 Intake Total 2700.556 / 2700.556 2599.557 / 2599.557 858.75 / 858.75 Output Total 1000 / 1000 800 / 800 Balance 1700.556 / 2967.062 2069.557 / 1799.557 858.75 / 858.75 Cumulative 08/12/21 22:47 thru 08/15/21 08:22 Intake Total 7288.596 Output Total 2200 Balance 5088.596 RT Ventilator Mngmt (Last Documented) Ventilator Ordered Settings Ventilator Support Mode CPAP 08/13/21 16:00 Respiratory Rate 23 08/15/21 09:00 Ventilator Tidal Volume 500 08/13/21 12:00 Setting Minute Ventilation 11.0 08/13/21 11:17 Ventilator Positive Pressure 10 08/13/21 16:00 Support Setting Positive End Expiratory 5 08/13/21 16:00 Pressure Fraction of Inspired Oxygen 30 08/15/21 05:00 Peak Inspiratory Flow 53 08/13/21 03:25 Machine Comment extubated to 4L oxy mask, SPO2 95 08/13/21 16:05 % Ventilator - PT Measurements Respiratory Rate 23 Exhaled Tidal Volume 494 Minute Ventilation 11.0 Peak Inspiratory Airway 26 Pressure Plateau Pressure 13 Respiratory Cycle Inspiratory: 1:2.6 Expiratory Ratio Inspiratory Phase Time 0.75 End-Tidal CO2 33 Static Lung Compliance 61.75 Dynamic Lung Compliance 23.52 Normal Static Lung Compliance 46.00 Patient Measurements Comment patient very agitated and clenching body against the vent. Sedation added due to high peak pressuring Coding Level of Care Code 44701 Subseq Hosp Care Lvl 3 Diagnoses Admitted to intensive care unit Z78.9 Altered mental status R41.82 Altered mental status type: unspecified Acute respiratory failure J96.00 Hand laceration S61.419A Multiple skin tears T14.8XXA Fall W19.XXXA (1) Altered mental status Altered mental status type: unspecified Qualified Code(s): R41.82 - Altered mental status, unspecified
[2021-08-15] MEDS: predniSONE 20 MG TAB PO SCH (10:41)
[2021-08-15] MEDS: CEROVITE ADV FORMULA TAB PO SCH (10:47)
[2021-08-15] MEDS: AZITHROMYCIN 250 MG in DEXTROSE 5% 250 ML IV SCH (14:10)
--- NOTE | 2021-08-15 15:31 | Hospitalist Progress Note ---
Date of Service August 15, 2021 Assessment & Plan Plan: Acute metabolic encephalopathy -in setting of hypercarbia -with improvement in his hypercarbia, his mental status has improved Acute (likely on chronic) hypoxic and hypercarbic respiratory failure -required intubation in the field, extubated to BIPAP but patient unable to tolerate BIPAP without sedation. -He was placed on precedex drip and placed on BiPAP for several yesterday -currently weaned down to 4L NC C7 fracture -continue cervical collar at all times -will ask for Ortho re-evaluation to determine mobility. In meantime, will place patient on bedrest until evaluated by Ortho Sacral fracture -pain control Hyponatremia -continue sodium tablets Recent DVT -Xarelto. He is at increased risk for bleed due to history of alcohol abuse and frequent falls. If he was to be discharged back to rehab, would continue Xarelto. If he is being discharged home--> would need to re-consider risk/benefit. Anemia -Iron levels low, B12, folate normal -No signs of active bleed. start PO iron when able History of alcohol abuse -has been hospitalized or at a SNF in past 2 weeks. Doubt he has had access to alcohol. altered mental status not likely from alcohol withdrawal. Disposition -Will need SNF placement. Per Cloud Engineer, patient stable for downgrade, will move to PCU Admission and Anticipated Discharge Date Admission Date: August 13, 2021 Subjective More awake today Denies pain or discomfort Physical Exam Physical Exam: Appears more awake, hard of hearing but answering questions appropriately, appears older than stated age, chronically ill appearing Respiratory: breathing comfortable, faint expiratory wheezing Cardiovascular: tachycardic, no murmurs/rubs Gastrointestinal (Abdomen): soft Skin: multiple skin tears, bruising on arms and legs Results & Data Results & Data ([facility]) Vital Signs (Past 12 Hours) Vital Signs Temp Pulse Pulse Resp BP Pulse Ox 08/15/21 13:23 123 H 28 H 98 08/15/21 12:00 120 H 29 H 147/78 H 94 08/15/21 11:00 108 H 30 H 134/106 H 96 08/15/21 10:00 93 H 25 H 123/64 98 08/15/21 09:06 107 H 08/15/21 09:01 36.7 C 08/15/21 09:00 90 23 114/60 88 L 08/15/21 08:00 104 H 22 126/68 99 08/15/21 07:39 104 H 22 100 08/15/21 07:00 105 H 28 H 122/94 96 08/15/21 06:00 130 H 27 H 140/89 92 08/15/21 05:00 98 H 23 129/74 100 08/15/21 04:00 36.4 C 96 H 21 128/66 100 Laboratory Results Short CBC 08/15/21 Range/Units 04:29 WBC 5.44 (4.8-10.8) K/uL Hgb 8.2 L (14.0-18.0) g/dL Hct 26.0 L (42-52) % Plt Count 293 (130-400) K/uL BMP 08/15/21 04:29 Sodium 136 Potassium 4.5 Chloride 99 Carbon Dioxide 31 BUN 15 Creatinine 0.43 L Glucose 114 H Calcium 7.8 L Liver Function 08/15/21 Range/Units 04:29 Total Bilirubin 0.3 (0.2-1.0) mg/dl Direct Bilirubin 0.0 (0-0.2) mg/dl AST 32 (13-39) U/L ALT 27 (7-52) U/L Alkaline Phosphatase 163 H (34-104) U/L Albumin 3.2 L (3.4-5.0) gm/dl Medications Administered Current Inpatient Medications Gabapentin (Gabapentin 100 Mg Cap) 200 mg PO Q8 [facility] Stop: 09/12/21 05:59 Last Admin: 08/15/21 14:16 Dose: 200 mg Documented by: Azithromycin 250 mg/ Dextrose 252.5 mls @ 126.25 mls/hr IV Q24H [facility]AY; Protocol Stop: 08/18/21 14:59 Last Admin: 08/15/21 14:10 Dose: 126.3 mls/hr Documented by: Ipratropium [place] (Ipratropium [place] Neb Soln 0.02% 2.5 Ml Vial) 0.5 mg INH Q6R [facility]AY Stop: 09/12/21 06:59 Last Admin: 08/15/21 13:19 Dose: 0.5 mg Documented by: Levalbuterol HCl (Levalbuterol 1.25mg/0.5ml Neb) 1.25 mg INH Q6R [facility] Stop: 09/12/21 06:59 Last Admin: 08/15/21 13:20 Dose: 1.25 mg Documented by: Metoprolol Succinate (Metoprolol Succ 50mg Ext Rel Tab) 50 mg PO QAM [facility] Stop: 09/13/21 12:59 Last Admin: 08/15/21 08:17 Dose: 50 mg Documented by: Multivitamins/Minerals (Cerovite Adv Formula Tab) 1 tab PO QA [facility] Stop: 09/14/21 10:59 Last Admin: 08/15/21 10:47 Dose: 1 tab Documented by: Prednisone (Prednisone 20 Mg Tab) 40 mg PO DAILY [facility] Stop: 09/14/21 09:59 Last Admin: 08/15/21 10:41 Dose: 40 mg Documented by: Rivaroxaban (Rivaroxaban 20 Mg Tab) 20 mg PO PM [facility] Stop: 09/12/21 20:59 Last Admin: 08/14/21 20:39 Dose: 20 mg Documented by: Tamsulosin HCl (Tamsulosin Hcl 0.4 Mg Cap) 0.4 mg PO DAILY [facility]AY Stop: 09/12/21 08:59 Last Admin: 08/13/21 10:14 Dose: Not Given Documented by: Thiamine HCl (Thiamine Hcl 100 Mg Tab) 100 mg PO DAILY [facility]AY Stop: 09/12/21 08:59 Last Admin: 08/15/21 08:17 Dose: 100 mg Documented by:
[2021-08-15 16:41] LABS: Codeine Urine NEGATIVE ng/mL (<50); Hydrocodone Urine NEGATIVE ng/mL (<50); Hydromor Urine NEGATIVE ng/mL (<50); Morphine Urine NEGATIVE ng/mL (<50); Norhydrocodone Conf Ur NEGATIVE ng/mL (<50); Noroxycodone Urine 775 ng/mL (<50); Oxycodone Urine 3060 ng/mL (<50); Oxymorph Urine 1430 ng/mL (<50)
[2021-08-15] MEDS ORDERED: ALBUTEROL HFA 8 GM INHALER INH PRN (17:51)
[2021-08-15] MEDS ORDERED: oxyCODONE HCL IR 5 MG TAB (IMMEDIATE RELEASE) PO PRN (17:51)
[2021-08-15] MEDS: dilTIAZem HCL 240 MG CAPCR PO SCH (19:32)
[2021-08-15] MEDS: DOCUSATE SODIUM 100 MG CAP PO SCH (20:52)
[2021-08-15] MEDS: CALCIUM 600MG + VIT D 400 IU TAB PO SCH (20:52)
[2021-08-15] MEDS: RIVAROXABAN 20 MG TAB PO SCH (20:53)
[2021-08-16] MEDS: LEVALBUTEROL 1.25MG/0.5ML NEB INH SCH ×4 (00:28→19:45)
[2021-08-16] MEDS: IPRATROPIUM BROMIDE NEB SOLN 0.02% 2.5 ML VIAL INH SCH ×4 (00:28→19:46)
[2021-08-16] MEDS: GABAPENTIN 100 MG CAP PO SCH ×3 (05:29→20:04)
[2021-08-16 07:01] LABS: Hematocrit (blood only) 25.8 % (42-52); Hemoglobin 7.9 g/dL (14.0-18.0); Mean Corpuscular Hemoglobin 30.5 pg (25-34); Mean Corpuscular Hgb Conc 30.6 g/dL (32-36); Mean Corpuscular Volume 99.6 fL (80-100); Mean Platelet Volume 9.1 fL (7.4-10.4); Platelet Count 320 K/uL (130-400); RDW Coefficient of Variation 14.1 % (11.5-14.5); RDW Standard Deviation 50.5 fL (36.4-46.3); Red Blood Count 2.59 M/uL (4.7-6.1); White Blood Count 7.72 K/uL (4.8-10.8)
[2021-08-16 07:23] LABS: BUN Creatinine Ratio 38.1 (10-20); Calcium 8.2 mg/dl (8.5-10.1); Creatinine Clr Calc Pharmacy 178.6 ml/min; Est GFR (African American) 140.6 ml/min; Est GFR (Non-African American) 121.3 ml/min; Magnesium 2.2 mg/dl (1.7-2.4); Phosphorus 1.8 mg/dl (2.5-4.9); Potassium 4.6 mmol/L (3.5-5.1)
[2021-08-16] MEDS: THIAMINE HCL 100 MG TAB PO SCH (08:38)
[2021-08-16] MEDS: DOCUSATE SODIUM 100 MG CAP PO SCH ×2 (08:38→20:05)
[2021-08-16] MEDS: predniSONE 20 MG TAB PO SCH (08:38)
[2021-08-16] MEDS: CEROVITE ADV FORMULA TAB PO SCH (08:39)
[2021-08-16] MEDS: METOPROLOL SUCC 50MG EXT REL TAB PO SCH (08:39)
[2021-08-16] MEDS: dilTIAZem HCL 240 MG CAPCR PO SCH (08:40)
[2021-08-16] MEDS: MULTIVITAMIN TAB PO SCH (08:40)
[2021-08-16] MEDS: FOLIC ACID 1 MG TAB PO SCH (08:40)
[2021-08-16] MEDS: TAMSULOSIN HCL 0.4 MG CAP PO SCH (08:41)
[2021-08-16] MEDS: UMECLIDINIUM/VILANTEROL 62.5/25MCG 7 PUFFS/INHALER INH SCH (08:41)
[2021-08-16] MEDS: FLUTICASONE FUROATE 100MCG 14 PUFFS/INHALER INH SCH (08:43)
[2021-08-16] MEDS: POT PHOSPHATE MONOBASIC W/ SOD TAB PO SCH ×4 (09:10→20:04)
--- NOTE | 2021-08-16 10:46 | Orthopedic Progress Note ---
Date of Service August 16, 2021 Assessment & Plan (1) Cervical compression fracture: Plan: Examining the patient today he has no tenderness with range of motion cervical spine rotation. He has a minimal anterior compression deformity of C7 which intrinsically is stable. We get him off his collar at this point and mobilize him. Please contact our service there are any questions or concerns. I discussed the plan with Dr. Lima and he agrees. Admission and Anticipated Discharge Date Admission Date: August 13, 2021 Subjective Patient seen bedside in room 209. He is alert and oriented today. He is somewhat hard of hearing however. He is not complaining of any neck pain or radicular pain. He denies any other numbness, tingling, or paresthesias. Physical Exam Physical Exam: On exam he is alert and oriented. He answers questions appropriately. His upper extremity motor exam reveals no focal atrophy his strength and sensation are both intact. He is nontender palpation along the cervical spine. He has full neck flexion extension and lateral rotation with no tenderness. Results & Data ([facility]) Vital Signs (Past 12 Hours) Vital Signs Temp Pulse Pulse Resp BP Pulse Ox 08/16/21 07:45 36.7 C 87 22 120/63 93 08/16/21 07:04 93 H 20 90 08/16/21 03:21 129/66 08/16/21 02:49 36.6 C 84 26 H 129/66 98 08/16/21 00:25 92 H 22 100 08/15/21 23:16 36.6 C 96 H 25 H 136/69 99 08/15/21 23:00 102 H
[2021-08-16] MEDS ORDERED: LEVALBUTEROL HCL 1.25 MG/3 ML NEB ONE (12:35)
--- NOTE | 2021-08-16 12:39 | Hospitalist Progress Note ---
Date of Service August 16, 2021 Assessment & Plan Plan: Acute metabolic encephalopathy -in setting of hypercarbia -with improvement in his hypercarbia, his mental status has improved Acute on chronic hypoxic and hypercarbic respiratory failure -baseline uses 3 L NC -required intubation in the field, extubated to BIPAP but patient unable to tolerate BIPAP without sedation. -He was placed on precedex drip and placed on BiPAP for several yesterday -currently weaned down to 4L NC C7 fracture -evaluated by ortho today and cleared from cervical collar Sacral fracture -pain control Hyponatremia -continue sodium tablets Recent DVT -Xarelto. He is at increased risk for bleed due to history of alcohol abuse and frequent falls. If he was to be discharged back to rehab, would continue Xarelto. If he is being discharged home--> would need to re-consider risk/bene fit. Anemia -Iron levels low, B12, folate normal -No signs of active bleed. PO iron when able History of alcohol abuse Abdominal distension -no complaints of nausea/vomiting, BM yesterday. Monitor for ileus Diffuse anasarca -start lasix 20mg IV daily Disposition -Will need SNF placement. PT/OT evaluation ordered Admission and Anticipated Discharge Date Admission Date: August 13, 2021 Subjective Tolerating diet Reports BM yesterday Denies nausea/vomiting Physical Exam Physical Exam: Appears chronically ill, no acute distress Respiratory: breathing comfortably on NC, faint end expiratory wheezing, no rhonchi Cardiovascular: regular rate and rhythm, no murmurs/rubs Gastrointestinal (Abdomen): +somewhat distended, +tympanic, patient denies pain or discomfort Musculoskeletal: +1 edema Skin: multiple skin tears, bruises Neurologic: awake, alert, spontaneously moving extremities Results & Data Results & Data ([facility]) Vital Signs (Past 12 Hours) Vital Signs Temp Pulse Pulse Resp BP Pulse Ox 08/16/21 11:32 37.3 C 91 H 24 113/53 L 92 08/16/21 08:00 93 H 08/16/21 07:45 36.7 C 87 22 120/63 93 08/16/21 07:04 93 H 20 90 08/16/21 03:21 129/66 08/16/21 02:49 36.6 C 84 26 H 129/66 98 Laboratory Results Short CBC 08/16/21 Range/Units 06:13 WBC 7.72 (4.8-10.8) K/uL Hgb 7.9 L (14.0-18.0) g/dL Hct 25.8 L (42-52) % Plt Count 320 (130-400) K/uL [facility] 08/16/21 06:13 Sodium 136 Potassium 4.6 Chloride 97 L Carbon Dioxide 39 H BUN 16 Creatinine 0.42 L Glucose 97 Calcium 8.2 L Medications Administered Current Inpatient Medications Albuterol (Albuterol Hfa 8 Gm Inhaler) 1 puffs INH Q4 PRN PRN Reason: Wheezing Stop: 09/14/21 17:50 Diltiazem HCl (Diltiazem Hcl 240 Mg Capcr) 240 mg PO DAILY [facility] Stop: 09/14/21 17:59 Last Admin: 08/16/21 08:40 Dose: 240 mg Documented by: Docusate Sodium (Docusate Sodium 100 Mg Cap) 100 mg PO BID [facility]AY Stop: 09/14/21 20:59 Last Admin: 08/16/21 08:38 Dose: 100 mg Documented by: Fluticasone Furoate (Fluticasone Furoate 100mcg 14 Puffs/Inhaler) 1 puffs INH DAILY [facility]; Protocol Stop: 09/15/21 08:59 Last Admin: 08/16/21 08:43 Dose: 1 puffs Documented by: Folic Acid (Folic Acid 1 Mg Tab) 1 mg PO DAILY ZAY Stop: 09/15/21 08:59 Last Admin: 08/16/21 08:40 Dose: 1 mg Documented by: Furosemide (Furosemide Inj 20 Mg/2 Ml Vial) 20 mg IV DAILY [facility] Stop: 08/20/21 09:01 Gabapentin (Gabapentin 100 Mg Cap) 200 mg PO Q8 [facility] Stop: 09/12/21 05:59 Last Admin: 08/16/21 05:29 Dose: 200 mg Documented by: Azithromycin 250 mg/ Dextrose 252.5 mls @ 126.25 mls/hr IV Q24H [facility]; Protocol Stop: 08/18/21 14:59 Last Infusion: 08/15/21 17:55 Dose: Infused Documented by: Ipratropium [place] (Ipratropium [place] Neb Soln 0.02% 2.5 Ml Vial) 0.5 mg INH Q6R [facility] Stop: 09/12/21 06:59 Last Admin: 08/16/21 12:37 Dose: 0.5 mg Documented by: Levalbuterol HCl (Levalbuterol 1.25mg/0.5ml Neb) 1.25 mg INH Q6R [facility] Stop: 09/12/21 06:59 Last Admin: 08/16/21 12:37 Dose: 1.25 mg Documented by: Metoprolol Succinate (Metoprolol Succ 50mg Ext Rel Tab) 50 mg PO QAM [facility] Stop: 09/13/21 12:59 Last Admin: 08/16/21 08:39 Dose: 50 mg Documented by: Multivitamins (Multivitamin Tab) 1 tab PO DAILY [facility]AY Stop: 09/15/21 08:59 Last Admin: 08/16/21 08:40 Dose: 1 tab Documented by: Multivitamins/Minerals (Cerovite Adv Formula Tab) 1 tab PO QAM [facility] Stop: 09/14/21 10:59 Last Admin: 08/16/21 08:39 Dose: 1 tab Documented by: Multivitamins/Minerals (Calcium 600mg + Vit D 400 Iu Tab) 1 tab PO TID [facility] Stop: 09/14/21 20:59 Last Admin: 08/15/21 20:52 Dose: 1 tab Documented by: Oxycodone HCl (Oxycodone Hcl Ir 5 Mg Tab (Immediate Release)) 5 mg PO Q4H PRN PRN Reason: .PAIN 4-6 Stop: 08/29/21 17:50 Potassium Phosphate (Pot Phosphate Monobasic W/ Sod Tab) 1 tab PO QID [facility] Stop: 09/15/21 08:59 Last Admin: 08/16/21 09:10 Dose: 1 tab Documented by: Prednisone (Prednisone 10 Mg Tablet) 30 mg PO DAILY [facility] Stop: 09/16/21 08:59 Rivaroxaban (Rivaroxaban 20 Mg Tab) 20 mg PO PM [facility] Stop: 09/12/21 20:59 Last Admin: 08/15/21 20:53 Dose: 20 mg Documented by: Tamsulosin HCl (Tamsulosin Hcl 0.4 Mg Cap) 0.4 mg PO DAILY [facility] Stop: 09/12/21 08:59 Last Admin: 08/16/21 08:41 Dose: 0.4 mg Documented by: Thiamine HCl (Thiamine Hcl 100 Mg Tab) 100 mg PO DAILY [facility] Stop: 09/12/21 08:59 Last Admin: 08/16/21 08:38 Dose: 100 mg Documented by: Umeclidinium/Vilanterol (Umeclidinium/Vilanterol 62.5/25mcg 7 Puffs/Inhaler) 1 puffs INH DAILY [facility]; Protocol Stop: 09/15/21 08:59 Last Admin: 08/16/21 08:41 Dose: 1 puffs Documented by:
[2021-08-16] MEDS ORDERED: FUROSEMIDE INJ 20 MG/2 ML VIAL IV SCH (13:00)
[2021-08-16] MEDS: AZITHROMYCIN 250 MG in DEXTROSE 5% 250 ML IV SCH (13:02)
[2021-08-16] MEDS: RIVAROXABAN 20 MG TAB PO SCH (20:04)
[2021-08-17] MEDS: IPRATROPIUM BROMIDE NEB SOLN 0.02% 2.5 ML VIAL INH SCH ×4 (00:25→19:11)
[2021-08-17] MEDS: LEVALBUTEROL 1.25MG/0.5ML NEB INH SCH ×4 (00:25→19:11)
[2021-08-17] MEDS: GABAPENTIN 100 MG CAP PO SCH ×3 (05:28→20:52)
[2021-08-17 06:42] LABS: Hematocrit (blood only) 25.2 % (42-52); Hemoglobin 7.7 g/dL (14.0-18.0); Mean Corpuscular Hemoglobin 30.2 pg (25-34); Mean Corpuscular Hgb Conc 30.6 g/dL (32-36); Mean Corpuscular Volume 98.8 fL (80-100); Platelet Count 303 K/uL (130-400); RDW Standard Deviation 50.1 fL (36.4-46.3); Red Blood Count 2.55 M/uL (4.7-6.1); White Blood Count 8.45 K/uL (4.8-10.8)
[2021-08-17] MEDS ORDERED: LEVALBUTEROL HCL 1.25 MG/3 ML NEB ONE ×2 (06:48→12:39)
[2021-08-17 07:01] LABS: BUN Creatinine Ratio 34.2 (10-20); Calcium 8.1 mg/dl (8.5-10.1); Creatinine Clr Calc Pharmacy 197.4 ml/min; Est GFR (African American) 146.5 ml/min; Est GFR (Non-African American) 126.4 ml/min; Magnesium 1.9 mg/dl (1.7-2.4); Phosphorus 2.7 mg/dl (2.5-4.9); Potassium 4.6 mmol/L (3.5-5.1)
[2021-08-17] MEDS: METOPROLOL SUCC 50MG EXT REL TAB PO SCH (08:04)
[2021-08-17] MEDS: FERROUS SULFATE 325 MG TAB PO SCH (08:04)
[2021-08-17] MEDS: CEROVITE ADV FORMULA TAB PO SCH (08:04)
[2021-08-17] MEDS: POT PHOSPHATE MONOBASIC W/ SOD TAB PO SCH ×4 (08:04→20:52)
[2021-08-17] MEDS: DOCUSATE SODIUM 100 MG CAP PO SCH ×2 (08:04→20:53)
[2021-08-17] MEDS: dilTIAZem HCL 240 MG CAPCR PO SCH (08:05)
[2021-08-17] MEDS: THIAMINE HCL 100 MG TAB PO SCH (08:05)
[2021-08-17] MEDS: MULTIVITAMIN TAB PO SCH (08:05)
[2021-08-17] MEDS: TAMSULOSIN HCL 0.4 MG CAP PO SCH (08:05)
[2021-08-17] MEDS: FOLIC ACID 1 MG TAB PO SCH (08:05)
[2021-08-17] MEDS: predniSONE 10 MG TABLET PO SCH (08:05)
[2021-08-17] MEDS: UMECLIDINIUM/VILANTEROL 62.5/25MCG 7 PUFFS/INHALER INH SCH (08:05)
[2021-08-17] MEDS: FLUTICASONE FUROATE 100MCG 14 PUFFS/INHALER INH SCH (08:06)
[2021-08-17 09:06] LABS: Allen Test Pos (Pos); Base Excess ABG 14.9 mEq/L (-9-1.8); HCO3 ABG 42 mmol/L (19-24); PCO2 ABG 74 mmHg (35-46); PO2 ABG 77 mmHg (80-95); pH ABG 7.37 (7.35-7.45)
[2021-08-17] MEDS ORDERED: bisacodyL 10 MG SUPP PR STA (09:18)
[2021-08-17] MEDS ORDERED: bisacodyL 10 MG SUPP PR PRN (09:18)
[2021-08-17] MEDS: acetaZOLAMIDE 250 MG TAB PO SCH ×2 (09:26→20:52)
[2021-08-17] MEDS: POLYETHYLENE (MIRALAX) 17 GM PACK PO SCH (09:27)
--- NOTE | 2021-08-17 09:30 | Hospitalist Progress Note ---
Date of Service August 17, 2021 Assessment & Plan Plan: Acute metabolic encephalopathy -in setting of hypercarbia -with improvement in his hypercarbia, his mental status has improved Acute on chronic hypoxic and hypercarbic respiratory failure -baseline uses 3 L NC -required intubation in the field, extubated to BIPAP but patient unable to tolerate BIPAP without sedation. -He was placed on precedex drip and placed on BiPAP for several yesterday -currently weaned down to 4L NC Metabolic alkalosis -start diamox, hold lasix C7 fracture -evaluated by ortho 08/16 and cleared from cervical collar Sacral fracture -pain control Hyponatremia -continue sodium tablets Recent DVT -Xarelto. He is at increased risk for bleed due to history of alcohol abuse and frequent falls. If he was to be discharged back to rehab, would continue Xarelto. If he is being discharged home--> would need to re-consider risk/benefit. Anemia -Iron levels low, B12, folate normal -No signs of active bleed. started PO iron History of alcohol abuse Abdominal distension -BM 08/15. Now feeling constipated, will start miralax and dulcolax [place] Diffuse anasarca -s/plasix 20mg IV x1 Admission and Anticipated Discharge Date Admission Date: August 13, 2021 Subjective Feeling constipated today No nausea/vomiting Denies chest pain or shortness of breath No events overnight Physical Exam Physical Exam: Appears chronically ill, no acute distress, hard of hearing Respiratory: breathing comfortably, no wheezing/rhonchi Cardiovascular: regular rate and rhythm, no murmurs/rubs/gallops Gastrointestinal (Abdomen): +hypoactive, +tympanic Musculoskeletal: 1+ edema right leg Skin: multiple skin tears and bruising Results & Data Results & Data ([facility]) Vital Signs (Past 12 Hours) Vital Signs Temp Pulse Pulse Pulse Resp BP Pulse Ox 08/17/21 07:00 103 H 08/17/21 06:54 80 18 99 08/17/21 03:56 37 C 82 16 117/51 L 95 08/17/21 00:25 82 20 94 08/16/21 23:26 36.7 C 91 H 22 117/51 L 97 08/16/21 23:00 91 H Laboratory Results Short CBC 08/17/21 Range/Units 06:18 WBC 8.45 (4.8-10.8) K/uL Hgb 7.7 L (14.0-18.0) g/dL Hct 25.2 L (42-52) % Plt Count 303 (130-400) K/uL [facility] 08/17/21 06:18 Sodium 134 L Potassium 4.6 Chloride 92 L Carbon Dioxide 44 H* BUN 13 Creatinine 0.38 L Glucose 104 H Calcium 8.1 L Medications Administered Current Inpatient Medications Acetazolamide (Acetazolamide 250 Mg Tab) 250 mg PO BID [facility] Stop: 09/16/21 08:59 Last Admin: 08/17/21 09:26 Dose: 250 mg Documented by: Albuterol (Albuterol Hfa 8 Gm Inhaler) 1 puffs INH Q4 PRN PRN Reason: Wheezing Stop: 09/14/21 17:50 Bisacodyl (Bisacodyl 10 Mg Supp) 10 mg [place] DAILY PRN PRN Reason: Constipation Stop: 09/16/21 09:17 Diltiazem HCl (Diltiazem Hcl 240 Mg Capcr) 240 mg PO DAILY [facility] Stop: 09/14/21 17:59 Last Admin: 08/17/21 08:05 Dose: 240 mg Documented by: Docusate Sodium (Docusate Sodium 100 Mg Cap) 100 mg PO BID [facility] Stop: 09/14/21 20:59 Last Admin: 08/17/21 08:04 Dose: 100 mg Documented by: Ferrous Sulfate (Ferrous Sulfate 325 Mg Tab) 325 mg PO QAM [facility] Stop: 09/16/21 08:59 Last Admin: 08/17/21 08:04 Dose: 325 mg Documented by: Fluticasone Furoate (Fluticasone Furoate 100mcg 14 Puffs/Inhaler) 1 puffs INH DAILY [facility]; Protocol Stop: 09/15/21 08:59 Last Admin: 08/17/21 08:06 Dose: 1 puffs Documented by: Folic Acid (Folic Acid 1 Mg Tab) 1 mg PO DAILY [facility] Stop: 09/15/21 08:59 Last Admin: 08/17/21 08:05 Dose: 1 mg Documented by: Gabapentin (Gabapentin 100 Mg Cap) 200 mg PO Q8 [facility] Stop: 09/12/21 05:59 Last Admin: 08/17/21 05:28 Dose: 200 mg Documented by: Azithromycin 250 mg/ Dextrose 252.5 mls @ 126.25 mls/hr IV Q24H [facility]; Protocol Stop: 08/18/21 14:59 Last Infusion: 08/16/21 15:42 Dose: Infused Documented by: Ipratropium [place] (Ipratropium [place] Neb Soln 0.02% 2.5 Ml Vial) 0.5 mg INH Q6R [facility] Stop: 09/12/21 06:59 Last Admin: 08/17/21 06:53 Dose: 0.5 mg Documented by: Levalbuterol HCl (Levalbuterol 1.25mg/0.5ml Neb) 1.25 mg INH Q6R [facility] Stop: 09/12/21 06:59 Last Admin: 08/17/21 06:54 Dose: 1.25 mg Documented by: Metoprolol Succinate (Metoprolol Succ 50mg Ext Rel Tab) 50 mg PO QAM [facility] Stop: 09/13/21 12:59 Last Admin: 08/17/21 08:04 Dose: 50 mg Documented by: Multivitamins (Multivitamin Tab) 1 tab PO DAILY [facility] Stop: 09/15/21 08:59 Last Admin: 08/17/21 08:05 Dose: 1 tab Documented by: Multivitamins/Minerals (Cerovite Adv Formula Tab) 1 tab PO QAM [facility] Stop: 09/14/21 10:59 Last Admin: 08/17/21 08:04 Dose: 1 tab Documented by: Multivitamins/Minerals (Calcium 600mg + Vit D 400 Iu Tab) 1 tab PO TID [facility] Stop: 09/14/21 20:59 Last Admin: 08/15/21 20:52 Dose: 1 tab Documented by: Oxycodone HCl (Oxycodone Hcl Ir 5 Mg Tab (Immediate Release)) 5 mg PO Q4H PRN PRN Reason: .PAIN 4-6 Stop: 08/29/21 17:50 Polyethylene Glycol (Polyethylene (Miralax) 17 Gm Pack) 17 gm PO DAILY [facility] Stop: 09/16/21 09:29 Last Admin: 08/17/21 09:27 Dose: 17 gm Documented by: Potassium Phosphate (Pot Phosphate Monobasic W/ Sod Tab) 1 tab PO QID [facility] Stop: 09/15/21 08:59 Last Admin: 08/17/21 08:04 Dose: 1 tab Documented by: Prednisone (Prednisone 10 Mg Tablet) 30 mg PO DAILY [facility] Stop: 09/16/21 08:59 Last Admin: 08/17/21 08:05 Dose: 30 mg Documented by: Rivaroxaban (Rivaroxaban 20 Mg Tab) 20 mg PO PM [facility] Stop: 09/12/21 20:59 Last Admin: 08/16/21 20:04 Dose: 20 mg Documented by: Tamsulosin HCl (Tamsulosin Hcl 0.4 Mg Cap) 0.4 mg PO DAILY [facility] Stop: 09/12/21 08:59 Last Admin: 08/17/21 08:05 Dose: 0.4 mg Documented by: Thiamine HCl (Thiamine Hcl 100 Mg Tab) 100 mg PO DAILY [facility] Stop: 09/12/21 08:59 Last Admin: 08/17/21 08:05 Dose: 100 mg Documented by: Umeclidinium/Vilanterol (Umeclidinium/Vilanterol 62.5/25mcg 7 Puffs/Inhaler) 1 puffs INH DAILY [facility]; Protocol Stop: 09/15/21 08:59 Last Admin: 08/17/21 08:05 Dose: 1 puffs Documented by:
[2021-08-17] MEDS: AZITHROMYCIN 250 MG in DEXTROSE 5% 250 ML IV SCH (13:46)
[2021-08-17] MEDS ORDERED: ACETAMINOPHEN 325 MG TAB PO PRN (14:44)
[2021-08-17] MEDS: MAGNESIUM HYDROXIDE SUSP 30 ML UDC PO SCH (15:16)
[2021-08-17] MEDS ORDERED: MINERAL OIL ENEMA 133 ML BTL PR ONE (15:45)
[2021-08-17] MEDS: RIVAROXABAN 20 MG TAB PO SCH (20:53)
[2021-08-18] MEDS: LEVALBUTEROL 1.25MG/0.5ML NEB INH SCH ×4 (00:46→19:32)
[2021-08-18] MEDS: IPRATROPIUM BROMIDE NEB SOLN 0.02% 2.5 ML VIAL INH SCH ×4 (00:46→19:32)
[2021-08-18] MEDS: GABAPENTIN 100 MG CAP PO SCH ×3 (05:38→20:12)
[2021-08-18] MEDS ORDERED: LACTULOSE SYRUP 30 GM/45 ML UDP PO ONE (06:15)
[2021-08-18] MEDS: DOCUSATE SODIUM/SENNA 50/8.6MG TAB PO SCH ×2 (06:25→20:13)
[2021-08-18 06:44] LABS: Hematocrit (blood only) 26.8 % (42-52); Hemoglobin 8.1 g/dL (14.0-18.0); Mean Corpuscular Hemoglobin 30.2 pg (25-34); Mean Corpuscular Hgb Conc 30.2 g/dL (32-36); Mean Platelet Volume 9.3 fL (7.4-10.4); Platelet Count 352 K/uL (130-400); RDW Standard Deviation 50.4 fL (36.4-46.3); Red Blood Count 2.68 M/uL (4.7-6.1); White Blood Count 7.65 K/uL (4.8-10.8)
[2021-08-18] MEDS ORDERED: LEVALBUTEROL HCL 1.25 MG/3 ML NEB ONE ×2 (06:48→12:31)
[2021-08-18 06:58] LABS: BUN Creatinine Ratio 30.2 (10-20); Creatinine Clr Calc Pharmacy 174.5 ml/min; Est GFR (African American) 139.3 ml/min; Est GFR (Non-African American) 120.2 ml/min; Magnesium 2.1 mg/dl (1.7-2.4); Potassium 4.3 mmol/L (3.5-5.1)
[2021-08-18] MEDS ORDERED: MAGNESIUM HYDROXIDE SUSP 30 ML UDC PO PRN (07:55)
[2021-08-18] MEDS: dilTIAZem HCL 240 MG CAPCR PO SCH (08:04)
[2021-08-18] MEDS: CEROVITE ADV FORMULA TAB PO SCH (08:04)
[2021-08-18] MEDS: MULTIVITAMIN TAB PO SCH (08:04)
[2021-08-18] MEDS: acetaZOLAMIDE 250 MG TAB PO SCH ×2 (08:04→20:13)
[2021-08-18] MEDS: FERROUS SULFATE 325 MG TAB PO SCH (08:04)
[2021-08-18] MEDS: TAMSULOSIN HCL 0.4 MG CAP PO SCH (08:04)
[2021-08-18] MEDS: METOPROLOL SUCC 50MG EXT REL TAB PO SCH (08:04)
[2021-08-18] MEDS: POLYETHYLENE (MIRALAX) 17 GM PACK PO SCH (08:04)
[2021-08-18] MEDS: CALCIUM 600MG + VIT D 400 IU TAB PO SCH ×3 (08:05→20:14)
[2021-08-18] MEDS: predniSONE 10 MG TABLET PO SCH (08:05)
[2021-08-18] MEDS: THIAMINE HCL 100 MG TAB PO SCH (08:06)
[2021-08-18] MEDS: FOLIC ACID 1 MG TAB PO SCH (08:06)
[2021-08-18] MEDS: FLUTICASONE FUROATE 100MCG 14 PUFFS/INHALER INH SCH (08:06)
[2021-08-18] MEDS: UMECLIDINIUM/VILANTEROL 62.5/25MCG 7 PUFFS/INHALER INH SCH (08:07)
[2021-08-18] MEDS: MAGNESIUM HYDROXIDE SUSP 30 ML UDC PO SCH (08:07)
[2021-08-18] MEDS ORDERED: DOCUSATE SODIUM/SENNA 50/8.6MG TAB PO SCH (09:00)
[2021-08-18] MEDS ORDERED: FUROSEMIDE 40 MG/4 ML VIAL IV ONE (10:53)
--- NOTE | 2021-08-18 11:00 | Hospitalist Progress Note ---
Date of Service August 18, 2021 Assessment & Plan Plan: Acute metabolic encephalopathy -in setting of hypercarbia -with improvement in his hypercarbia, his mental status has improved Acute on chronic hypoxic and hypercarbic respiratory failure -baseline uses 3 L NC -required intubation in the field, extubated to BIPAP but patient unable to tolerate BIPAP without sedation. -He was placed on precedex drip and placed on BiPAP now weaned to NC Metabolic alkalosis -improved on diamox C7 fracture -evaluated by ortho 08/16 and cleared from cervical collar Sacral fracture -pain control Hyponatremia -continue sodium tablets Recent DVT -Xarelto. He is at increased risk for bleed due to history of alcohol abuse and frequent falls. If he was to be discharged back to rehab, would continue Xarelto. If he is being discharged home--> would need to re-consider risk/b enefit. Anemia -Iron levels low, B12, folate normal -No signs of active bleed. started PO iron History of alcohol abuse Abdominal distension -BM 08/15.BM again 08/17 -continue aggressive bowel regimen Diffuse anasarca -s/plasix 20mg IV x1 -will give another dose lasix 40mg IV today Admission and Anticipated Discharge Date Admission Date: August 13, 2021 Subjective BM finally yesterday Today got out of bed to bathroom then chair with PT Physical Exam Physical Exam: Appears older than stated age, chronically ill appearing, debilitated Respiratory: +faint expiratory wheezing, no rhonchi/rales Cardiovascular: regular rate and rhythm, no murmurs/rubs/gallops Gastrointestinal (Abdomen): soft, hypoactive, non tender Musculoskeletal: 1+ edema left leg, 2+ edema right leg Skin: thin and fragile appearing, multiple skin tears, bruising Neurologic: awake, alert, spontaneously moving extremities Results & Data Results & Data ([facility]) Vital Signs (Past 12 Hours) Vital Signs Temp Pulse Pulse Pulse Resp BP Pulse Ox 08/18/21 09:31 08/18/21 08:00 78 08/18/21 07:22 36.7 C 82 18 116/53 L 97 08/18/21 06:53 83 20 97 08/18/21 02:24 36.6 C 77 22 118/59 L 100 08/18/21 00:47 80 25 H 100 08/17/21 23:24 91 H 08/17/21 23:04 36.7 C 79 22 116/56 L 99 Pulse Ox Pulse Ox 08/18/21 09:31 98 78 L 08/18/21 08:00 08/18/21 07:22 08/18/21 06:53 08/18/21 02:24 08/18/21 00:47 08/17/21 23:24 08/17/21 23:04 Laboratory Results Short CBC 08/18/21 Range/Units 05:56 WBC 7.65 (4.8-10.8) K/uL Hgb 8.1 L (14.0-18.0) g/dL Hct 26.8 L (42-52) % Plt Count 352 (130-400) K/uL [facility] 08/18/21 05:56 Sodium 132 L Potassium 4.3 Chloride 95 L Carbon Dioxide 37 H BUN 13 Creatinine 0.43 L Glucose 112 H Calcium 8.0 L
[2021-08-18] MEDS: AZITHROMYCIN 250 MG in DEXTROSE 5% 250 ML IV SCH (14:19)
[2021-08-18] MEDS: RIVAROXABAN 20 MG TAB PO SCH (20:12)
[2021-08-19] MEDS: IPRATROPIUM BROMIDE NEB SOLN 0.02% 2.5 ML VIAL INH SCH ×5 (00:46→23:51)
[2021-08-19] MEDS: LEVALBUTEROL 1.25MG/0.5ML NEB INH SCH ×5 (00:46→23:51)
[2021-08-19] MEDS: GABAPENTIN 100 MG CAP PO SCH ×3 (06:06→20:54)
[2021-08-19] MEDS ORDERED: LEVALBUTEROL HCL 1.25 MG/3 ML NEB ONE (06:58)
[2021-08-19 07:02] LABS: Hematocrit (blood only) 26.9 % (42-52); Hemoglobin 8.3 g/dL (14.0-18.0); Mean Corpuscular Hgb Conc 30.9 g/dL (32-36); Mean Corpuscular Volume 97.1 fL (80-100); Mean Platelet Volume 9.1 fL (7.4-10.4); Platelet Count 391 K/uL (130-400); RDW Coefficient of Variation 14.1 % (11.5-14.5); RDW Standard Deviation 50.1 fL (36.4-46.3); Red Blood Count 2.77 M/uL (4.7-6.1); White Blood Count 8.02 K/uL (4.8-10.8)
[2021-08-19 07:27] LABS: BUN Creatinine Ratio 39.2 (10-20); Creatinine Clr Calc Pharmacy 147.1 ml/min; Est GFR (African American) 129.8 ml/min; Magnesium 1.8 mg/dl (1.7-2.4); Phosphorus 3.5 mg/dl (2.5-4.9); Potassium 3.8 mmol/L (3.5-5.1)
[2021-08-19] MEDS ORDERED: POTASSIUM CHLORIDE CRTAB 20 MEQ TABCR PO STA (07:41)
[2021-08-19] MEDS: TAMSULOSIN HCL 0.4 MG CAP PO SCH (08:54)
[2021-08-19] MEDS: predniSONE 10 MG TABLET PO SCH (08:54)
[2021-08-19] MEDS: CEROVITE ADV FORMULA TAB PO SCH (08:54)
[2021-08-19] MEDS: METOPROLOL SUCC 50MG EXT REL TAB PO SCH (08:54)
[2021-08-19] MEDS: DOCUSATE SODIUM/SENNA 50/8.6MG TAB PO SCH ×2 (08:54→20:55)
[2021-08-19] MEDS: POLYETHYLENE (MIRALAX) 17 GM PACK PO SCH (08:55)
[2021-08-19] MEDS: FERROUS SULFATE 325 MG TAB PO SCH (08:55)
[2021-08-19] MEDS: acetaZOLAMIDE 250 MG TAB PO SCH ×2 (08:55→20:53)
[2021-08-19] MEDS: dilTIAZem HCL 240 MG CAPCR PO SCH (08:55)
[2021-08-19] MEDS: UMECLIDINIUM/VILANTEROL 62.5/25MCG 7 PUFFS/INHALER INH SCH (08:55)
[2021-08-19] MEDS: FOLIC ACID 1 MG TAB PO SCH (08:55)
[2021-08-19] MEDS: MAGNESIUM HYDROXIDE SUSP 30 ML UDC PO SCH (08:55)
[2021-08-19] MEDS: CALCIUM 600MG + VIT D 400 IU TAB PO SCH ×3 (08:55→20:55)
[2021-08-19] MEDS: THIAMINE HCL 100 MG TAB PO SCH (08:55)
[2021-08-19] MEDS: MULTIVITAMIN TAB PO SCH (08:55)
[2021-08-19] MEDS: FLUTICASONE FUROATE 100MCG 14 PUFFS/INHALER INH SCH (08:56)
[2021-08-19] MEDS: MAGNESIUM SULFATE / D5W 1 GM/100 ML BAG IV SCH ×2 (08:58→10:49)
[2021-08-19] MEDS: FUROSEMIDE INJ 20 MG/2 ML VIAL IV SCH (08:59)
--- NOTE | 2021-08-19 16:20 | Hospitalist Progress Note ---
Date of Service August 19, 2021 Assessment & Plan Plan: Acute metabolic encephalopathy -in setting of hypercarbia -with improvement in his hypercarbia, his mental status has improved Acute on chronic hypoxic and hypercarbic respiratory failure -baseline uses 3 L NC -required intubation in the field, extubated to BIPAP but patient unable to tolerate BIPAP without sedation. -He was placed on precedex drip and placed on BiPAP now weaned down to 3L NC Metabolic alkalosis -improved on diamox C7 fracture -evaluated by ortho 08/16 and cleared from cervical collar Sacral fracture -pain control Hyponatremia -continue sodium tablets Recent DVT -Xarelto. He is at increased risk for bleed due to history of alcohol abuse and frequent falls. If he was to be discharged back to rehab, would continue Xarelto. If he is being discharged home--> would need to re-consider risk/benefit. Anemia -Iron levels low, B12, folate normal -No signs of active bleed.Will discontinue PO iron due to constipation, can consider IV iron History of alcohol abuse Abdominal distension -BM 08/15.BM again 08/17 -continue aggressive bowel regimen Diffuse anasarca -continue lasix 20mg IV daily Disposition -SNF when bed available Admission and Anticipated Discharge Date Admission Date: August 13, 2021 Subjective No events overnight Diuresing well Feels constipated again Physical Exam Physical Exam: Appears thin, chronically ill appearing, no acute distress Respiratory: breathing comfortably, no wheezing/rhonchi/rales Cardiovascular: regular rate and rhythm, no murmurs/rubs/gallops Gastrointestinal (Abdomen): +distended, soft, non tender Musculoskeletal: 1+ edema bilateral legs Skin: multiple skin tears and bruises Neurologic: awake, alert, spontaneously moving extremities Results & Data Results & Data ([facility]) Vital Signs (Past 12 Hours) Vital Signs Temp Pulse Pulse Resp BP Pulse Ox 08/19/21 15:22 36.7 C 87 23 109/58 L 100 08/19/21 13:16 85 18 100 08/19/21 11:22 36.7 C 95 H 19 111/42 L 98 08/19/21 08:00 80 08/19/21 07:22 36.6 C 81 17 112/45 L 100 08/19/21 07:02 83 18 97 Laboratory Results Short CBC 08/19/21 Range/Units 06:33 WBC 8.02 (4.8-10.8) K/uL Hgb 8.3 L (14.0-18.0) g/dL Hct 26.9 L (42-52) % Plt Count 391 (130-400) K/uL [facility] 08/19/21 06:33 Sodium 133 L Potassium 3.8 Chloride 99 Carbon Dioxide 33 H BUN 20 Creatinine 0.51 L Glucose 104 H Calcium 8.0 L Medications Administered Current Inpatient Medications Acetaminophen (Acetaminophen 325 Mg Tab) 650 mg PO Q6 PRN PRN Reason: Pain Stop: 09/16/21 14:43 Acetazolamide (Acetazolamide 250 Mg Tab) 250 mg PO BID [facility] Stop: 09/16/21 08:59 Last Admin: 08/19/21 08:55 Dose: 250 mg Documented by: Albuterol (Albuterol Hfa 8 Gm Inhaler) 1 puffs INH Q4 PRN PRN Reason: Wheezing Stop: 09/14/21 17:50 Bisacodyl (Bisacodyl 10 Mg Supp) 10 mg [place] DAILY PRN PRN Reason: Constipation Stop: 09/16/21 09:17 Diltiazem HCl (Diltiazem Hcl 240 Mg Capcr) 240 mg PO DAILY [facility] Stop: 09/14/21 17:59 Last Admin: 08/19/21 08:55 Dose: 240 mg Documented by: Ferrous Sulfate (Ferrous Sulfate 325 Mg Tab) 325 mg PO QAM [facility] Stop: 09/16/21 08:59 Last Admin: 08/19/21 08:55 Dose: 325 mg Documented by: Fluticasone Furoate (Fluticasone Furoate 100mcg 14 Puffs/Inhaler) 1 puffs INH DAILY [facility]; Protocol Stop: 09/15/21 08:59 Last Admin: 08/19/21 08:56 Dose: 1 puffs Documented by: Folic Acid (Folic Acid 1 Mg Tab) 1 mg PO DAILY [facility] Stop: 09/15/21 08:59 Last Admin: 08/19/21 08:55 Dose: 1 mg Documented by: Furosemide (Furosemide Inj 20 Mg/2 Ml Vial) 20 mg IV DAILY [facility] Stop: 08/23/21 09:01 Last Admin: 08/19/21 08:59 Dose: 20 mg Documented by: Gabapentin (Gabapentin 100 Mg Cap) 200 mg PO Q8 [facility] Stop: 09/12/21 05:59 Last Admin: 04/11/22 15:04 Dose: 200 mg Documented by: Ipratropium [place] (Ipratropium [place] Neb Soln 0.02% 2.5 Ml Vial) 0.5 mg INH Q6R [facility] Stop: 09/12/21 06:59 Last Admin: 08/19/21 13:15 Dose: 0.5 mg Documented by: Levalbuterol HCl (Levalbuterol 1.25mg/0.5ml Neb) 1.25 mg INH Q6R [facility] Stop: 09/12/21 06:59 Last Admin: 08/19/21 13:15 Dose: 1.25 mg Documented by: Magnesium Hydroxide (Magnesium Hydroxide Susp 30 Ml Udc) 30 ml PO DAILY [facility] Stop: 08/22/21 14:44 Last Admin: 08/19/21 08:55 Dose: 30 ml Documented by: Magnesium Hydroxide (Magnesium Hydroxide Susp 30 Ml Udc) 30 ml PO Q6H PRN PRN Reason: constipation Stop: 09/17/21 07:54 Metoprolol Succinate (Metoprolol Succ 50mg Ext Rel Tab) 50 mg PO QAM [facility] Stop: 09/13/21 12:59 Last Admin: 08/19/21 08:54 Dose: 50 mg Documented by: Multivitamins (Multivitamin Tab) 1 tab PO DAILY [facility] Stop: 09/15/21 08:59 Last Admin: 08/19/21 08:55 Dose: 1 tab Documented by: Multivitamins/Minerals (Cerovite Adv Formula Tab) 1 tab PO QAM [facility] Stop: 09/14/21 10:59 Last Admin: 08/19/21 08:54 Dose: 1 tab Documented by: Multivitamins/Minerals (Calcium 600mg + Vit D 400 Iu Tab) 1 tab PO TID [facility] Stop: 09/14/21 20:59 Last Admin: 08/19/21 15:04 Dose: 1 tab Documented by: Polyethylene Glycol (Polyethylene (Miralax) 17 Gm Pack) 17 gm PO DAILY [facility] Stop: 09/16/21 09:29 Last Admin: 08/19/21 08:55 Dose: 17 gm Documented by: Prednisone (Prednisone 10 Mg Tablet) 30 mg PO DAILY [facility] Stop: 09/16/21 08:59 Last Admin: 08/19/21 08:54 Dose: 30 mg Documented by: Rivaroxaban (Rivaroxaban 20 Mg Tab) 20 mg PO PM [facility] Stop: 09/12/21 20:59 Last Admin: 08/18/21 20:12 Dose: 20 mg Documented by: Senna/Docusate Sodium (Docusate Sodium/Senna 50/8.6mg Tab) 1 tab PO BID [facility] Stop: 09/17/21 06:14 Last Admin: 08/19/21 08:54 Dose: 1 tab Documented by: Tamsulosin HCl (Tamsulosin Hcl 0.4 Mg Cap) 0.4 mg PO DAILY [facility] Stop: 09/12/21 08:59 Last Admin: 08/19/21 08:54 Dose: 0.4 mg Documented by: Thiamine HCl (Thiamine Hcl 100 Mg Tab) 100 mg PO DAILY [facility] Stop: 09/12/21 08:59 Last Admin: 08/19/21 08:55 Dose: 100 mg Documented by: Umeclidinium/Vilanterol (Umeclidinium/Vilanterol 62.5/25mcg 7 Puffs/Inhaler) 1 puffs INH DAILY [facility]; Protocol Stop: 09/15/21 08:59 Last Admin: 08/19/21 08:55 Dose: 1 puffs Documented by:
[2021-08-19] MEDS: RIVAROXABAN 20 MG TAB PO SCH (20:53)
[2021-08-20] MEDS: GABAPENTIN 100 MG CAP PO SCH (06:12)
[2021-08-20 06:35] LABS: Hematocrit (blood only) 28.9 % (42-52); Hemoglobin 8.9 g/dL (14.0-18.0); Mean Corpuscular Hemoglobin 30.5 pg (25-34); Mean Corpuscular Hgb Conc 30.8 g/dL (32-36); Mean Platelet Volume 8.9 fL (7.4-10.4); Platelet Count 398 K/uL (130-400); RDW Coefficient of Variation 14.3 % (11.5-14.5); RDW Standard Deviation 51.6 fL (36.4-46.3); Red Blood Count 2.92 M/uL (4.7-6.1); White Blood Count 7.57 K/uL (4.8-10.8)
[2021-08-20] MEDS ORDERED: LEVALBUTEROL HCL 1.25 MG/3 ML NEB ONE ×2 (06:58→13:02)
[2021-08-20] MEDS: LEVALBUTEROL 1.25MG/0.5ML NEB INH SCH ×2 (07:01→13:07)
[2021-08-20] MEDS: IPRATROPIUM BROMIDE NEB SOLN 0.02% 2.5 ML VIAL INH SCH ×2 (07:01→13:07)
[2021-08-20 07:08] LABS: BUN Creatinine Ratio 31.1 (10-20); Calcium 8.1 mg/dl (8.5-10.1); Creatinine Clr Calc Pharmacy 166.7 ml/min; Est GFR (African American) 136.7 ml/min; Est GFR (Non-African American) 117.9 ml/min; Magnesium 1.8 mg/dl (1.7-2.4); Potassium 3.9 mmol/L (3.5-5.1)
[2021-08-20] MEDS ORDERED: POTASSIUM CHLORIDE CRTAB 20 MEQ TABCR PO STA (08:12)
[2021-08-20] MEDS: MAGNESIUM HYDROXIDE SUSP 30 ML UDC PO SCH (08:24)
[2021-08-20] MEDS: FUROSEMIDE INJ 20 MG/2 ML VIAL IV SCH (08:25)
[2021-08-20] MEDS: DOCUSATE SODIUM/SENNA 50/8.6MG TAB PO SCH (08:25)
[2021-08-20] MEDS: CALCIUM 600MG + VIT D 400 IU TAB PO SCH (08:25)
[2021-08-20] MEDS: POLYETHYLENE (MIRALAX) 17 GM PACK PO SCH (08:25)
[2021-08-20] MEDS: acetaZOLAMIDE 250 MG TAB PO SCH (08:25)
[2021-08-20] MEDS: TAMSULOSIN HCL 0.4 MG CAP PO SCH (08:26)
[2021-08-20] MEDS: FOLIC ACID 1 MG TAB PO SCH (08:26)
[2021-08-20] MEDS: CEROVITE ADV FORMULA TAB PO SCH (08:26)
[2021-08-20] MEDS: dilTIAZem HCL 240 MG CAPCR PO SCH (08:26)
[2021-08-20] MEDS: METOPROLOL SUCC 50MG EXT REL TAB PO SCH (08:26)
[2021-08-20] MEDS: UMECLIDINIUM/VILANTEROL 62.5/25MCG 7 PUFFS/INHALER INH SCH (08:26)
[2021-08-20] MEDS: THIAMINE HCL 100 MG TAB PO SCH (08:26)
[2021-08-20] MEDS: FLUTICASONE FUROATE 100MCG 14 PUFFS/INHALER INH SCH (08:27)
[2021-08-20] MEDS ORDERED: MAGNESIUM OXIDE 400 MG TAB PO ONE (08:30)
[2021-08-20] MEDS ORDERED: predniSONE 20 MG TAB PO SCH (09:00)
--- NOTE | 2021-08-20 12:49 | Discharge Summary ---
Date of Service August 20, 2021 Admission HPI Per Admitting Provider A 66-year-old male with past medical history significant for COPD, on home oxygen, seems to be on 3 liters, history of lung cancer diagnosed in 2008, presumed to be non-small cell lung carcinoma of the posterior right upper lung, felt to be not a candidate for any lung surgery or lung biopsy. He received radiation treatment from 03/26/2009 to 04/02/2009, seems to be at [facility]. The patient since then he stopped smoking, but he vapes once in a while. History of alcohol abuse, seems to be drinking 4-6 beers every day. The patient has history of hypertension, hyperlipidemia, recent diagnosis of BPH and recent di agnosis of right leg DVT. He was brought in from [facility] because of fall and altered mental status and he was intubated because venous blood gas is showing pH of 7.17 and pCO2 of 65. As per the H and P done by [facility] on 08/08/2021, the patient was admitted to [facility] from 07/19/2021 to 07/22/2021. At that time, he was admitted for fall leading to superior and inferior pubic rami fractures and a complex right upper extremity laceration. He also was found to have a right femoral DVT on that visit and was started on Xarelto. Inpatient rehabilitation was recommended, but the patient refused and went home. After going home, seems he did poorly and was declining functionally and he was found confused, lethargic by a neighbor, and was taken to the [place] ER on 07/29/2021, where his sodium level was quite low at 112, potassium was 5.1, creatinine was 0.5. WBC was 15, hemoglobin was 10.9. CT of the head was no acute findings. Multiple compression fractures at L2 level and was transferred back to [place] due to severe hyponatremia. At that time, he initially required BiPAP due to dyspnea and somnolence, but he was titrated back on nasal cannula. Seemed to be stable on 3 liters nasal cannula. 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 He was treated with intravenous sodium and placed on sodium tablets and fluid restriction of 1200 mL per day. Serum sodium level gradually came up to 129 on discharge and also patient had several episodes of urinary retention that was attributed to BPH, seems he is on Flomax. Pulmonary has seen him and he was chronically on prednisone, they tapered him off prednisone .He also had one shot of COVID, Pfizer shot on 08/03/2021.He was discharged to [facility] and as per the sister, he was getting confused and today told he was found on the floor. Seemed to be without oxygen and was brought in here. In the ER, he was confused and as his ABG was showing low pH, he was intubated. Currently sedated with propofol. As blood pressure was dropping, changing to fentanyl drip. He has open wound on the right wrist, which was sutured by the ER and also laceration seen in the right upper extremity. All the history was got from the H and P from the [facility] and from the ER and from the sister. The patient is a full code. Could not get any history from the patient. Principal Diagnosis Acute metabolic encephalopathy Acute on chronic hypoxic and hypercapnic respiratory failure Chronic hyponatremia (beer potomania, SiADH) Diffuse anasarca, improved Recent right lower extremity DVT (diagnosed 07/2021) C7 anterior compression fracture Right hand laceration Sacral fracture Discharge Exam Appears well, hard of hearing but answering questions appropriately Respiratory breathing comfortably on 3L oxygen (his baseline), no wheezing/rhonchi/rales Cardiovascular regular rate and rhythm, no murmurs/rubs/gallops Gastrointestinal (Abdomen) soft Musculoskeletal 1+ edema bilaterally improved Skin right hand skin tear, multiple bruises on arms and legs Neurologic hard of hearing but answers questions appropriately, awake, alert, spontaneuosly moving extremities Discharge Data Allergies Allergy/AdvReac Type Severity Reaction Status Date / Time sulfamethoxazole Allergy Unknown Verified 08/13/21 01:48 [From Bactrim] trimethoprim [From Bactrim] Allergy Unknown Verified 08/13/21 01:48 Consultations 08/13/21 00:53 ED Decision to Admit Stat 08/13/21 03:51 Consult Customer Management Specialist Routine 08/13/21 09:50 Consult Orthopedic Surgery Routine Ordered Studies 08/12/21 23:17 CT head/brain wo con Urgent 08/12/21 23:34 CT abd pelvis IV con only Urgent CT cervical spine wo con Urgent CT chest diagnostic w con Urgent Hospital Course Mr Dilan Maurer is a 66 year old man with history of COPD on chronic 3 L NC, NSCLC s/p radiation, former smoker, chronic hyponatremia (beer potomania, sIADH), recent right femoral DVT (07/2021) on Xarelto, pubic rami fracture from prior falls was admitted from [facility] 08/13 after falling and being found on the ground. He was very confused and was intubated in field for respiratory failure. Hospital course as below. Acute metabolic encephalopathy -in setting of hypercarbia -with improvement in his hypercarbia, his mental status has resolved to baseline Acute on chronic hypoxic and hypercarbic respiratory failure -at baseline uses 3 L NC -required intubation on arrival, extubated to BIPAP with precedex for sedation -he finished 5 day of antibiotics (initially with zosyn then azithromycin and ceftriaxone) but imaging did not reveal pneumonia -He was also started on steroids and maintained on neublizer for presumed COPD exacerbation -CXR revealed bilateral pleural effusion for which he also received IV lasix -he steadily improved with treatment and was weaned down to 3L NC prior to discharged Acute COPD exacerbation Severe emphysema -Solumedrol to prednisone taper, discharged on prolonged prednisone taper. -After completion of prednisone taper, he can continue prednisone 2.5mg QOD which was his prior maintenance dose. 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 Oxycodone discontinued due to severe constipation Right hand laceration -present on admission -sutured in ER Hyponatremia -continue sodium tablets -Na remains stable here -Would recommend weekly BMP at [facility] Recent DVT -Right femoral DVT diagnosed at outside hospital 07/2021. -would need 3 months treatment -he was on Xarelto which was continued here Anemia -Iron levels low, B12, folate normal -No signs of active bleed -received several doses of oral iron here which was discontinued due to constipation -Can consider resuming oral iron when he is more ambulatory and constipation has improved. Can also consider intermittent IV infusion--> he will need to follow up with his PCP for this Alcohol abuse -history of alcohol dependence and alcoholism -he is in remission Chronic bilateral lower extremity swelling -improved with IV lasix. Discharged on lasix 20mg daily. Follow up with PCP for lasix titration Total Time Total Time Spent Total Time Spent (In Minutes): 45 Discharge Plan Discharge Items Patient Disposition: Transfer Group Home Fac Reason For Visit: FALL, RESP FILURE Discharge Diagnosis: Acute metabolic encephalopathy Acute on chronic hypoxic and hypercapnic respiratory failure Chronic hyponatremia (beer potomania, SiADH) Diffuse anasarca, improved Recent right DVT (diagnosed 07/2021) C7 anterior compression fracture Right hand laceration Sacral fracture Condition on Discharge: Good Activity: Resume your previous activity Non-emergency contact: Primary Care Provider Call non-emergency contact if: you have any medication questions and your symptoms worsen Follow-up/Referrals: [facility] [Primary Care Provider] - Diet: Regular Addtl Attending Provider Instructions: Avoid narcotics which can cause confusion and constipation Lasix 40mg oral daily x 5 more days then as needed for leg swelling thereafter Prednisone taper to off Pending Studies at Discharge: No Stand-Alone Forms: My [facility] Skilled Items Patient informed of condition?: Yes DNR: No Discharge Level of Care: Skilled Communicable Disease: No Discharge Prognosis: Improving Lines: None Urinary Catheter: No Medications and DC Order Prescriptions: New furosemide [Lasix] 20 mg tablet 20 mg PO DAILY Qty: 30 RF: 1 prednisone 5 mg tablet See Rx Instructions .ROUTE .COMPLEX Qty: 30 RF: 0 Continued ondansetron HCl 4 mg Tablet 4 mg PO Q6H PRN (Reason: Nausea) RF: 0 sennosides-docusate sodium [Senna-S] 8.6-50 mg Tablet 1 tab-cap PO DAILY PRN (Reason: Constipation) RF: 0 magnesium hydroxide [Milk of Magnesia] 400 mg/5 mL Suspension 0 ml PO DAILY PRN (Reason: Constipation) RF: 0 docusate sodium 100 mg Capsule 100 mg PO BID RF: 0 albuterol sulfate 90 mcg/actuation Hfa Aerosol Inhaler 1 inh INHALATION Q4 PRN (Reason: Wheezing) RF: 0 calcium carbonate-vitamin D3 [Calcium 500 + D] 500 mg-5 mcg (200 unit) Tablet 1 tab PO TID RF: 0 atorvastatin 20 mg Tablet 20 mg PO HS RF: 0 metoprolol succinate 50 mg Tablet Extended Release 24 Hr 50 mg PO DAILY RF: 0 diltiazem HCl 240 mg Capsule,Extended Release 24 Hr 240 mg PO DAILY RF: 0 folic acid 1 mg Tablet 1 mg PO DAILY RF: 0 multivitamin,vl-japv-Np-FA-min Tablet 1 tab PO DAILY RF: 0 sodium chloride 1 gram Tablet 1,000 mg PO Q8 RF: 0 thiamine HCl (vitamin B1) 100 mg Tablet 100 mg PO DAILY RF: 0 potassium chloride 10 mEq Tablet Extended Release 20 meq PO DAILY RF: 0 tamsulosin 0.4 mg Capsule 0.4 mg PO DAILY RF: 0 Xarelto 20 mg Tablet 20 mg PO PM RF: 0 Trelegy Ellipta 100-62.5-25 mcg Blister With Device 1 inh INHALATION DAILY RF: 0 gabapentin 100 mg Tablet 200 mg PO Q8 RF: 0 acetaminophen [Tylenol] 325 mg Tablet 650 mg PO Q4 PRN (Reason: Pain) 15 Days Qty: 30 RF: 0 Discontinued ergocalciferol (vitamin D2) 50,000 unit Tablet 50,000 unit PO 2XWK RF: 0 prednisone 2.5 mg Tablet 2.5 mg PO Q OTHER DAY RF: 0 oxycodone 5 mg Tablet 10 mg PO Q4H PRN (Reason: .PAIN 7-10) RF: 0 oxycodone 5 mg Tablet 5 mg PO Q4H PRN (Reason: .PAIN 4-6) RF: 0 Discharge Orders: Discharge Order (Routine); Ordered 08/20/21 Ordered By: Yeni Westbrook Admission Data Admit Date/Time: 08/13/21 02:21 Attending Provider: Yeni Westbrook Admit Provider: Mick Parry [facility] Other Providers: Ector Almanzar ; [facility] ; [facility] ; Mick Parry ; Keegan Blankenship ; Keegan Lima Other Interventions: Discharge Summary Assessment (RN) Last Done: 08/20/21 11:23
== END 2021-08-20 14:18 | DRG 208 ==
LOC: ED 23:08 → 1E 08-13 02:21 → SUATTDRO 08-13 02:21 → 1E 08-13 02:53 → 2E 08-15 17:43